=== PATIENT | male | born 1950 | race Caucasian/White ===

== ENCOUNTER 2025-05-16 09:40 | Outpatient (AMB) | payer MEDICARE, SELFPAY ==
--- OUTSIDE RECORDS SUMMARY | 2024-02-09 06:00 | XMS_ITS ---
Author Organization [facility], [place] Address [address] [facility] 1 [place] [address] Care Team Providers Care Postal Delivery Officer Name Role Phone Migration, Provider Unavailable Unavailable REASON FOR VISIT CPX Encounters Encounter Location Date Provider Diagnosis [facility], [address] [address] 02/09/2024 Provider Migration Plan Of Treatment No Information Progress Notes * KAYLEN ARRIAGADOB: (74 yo M)Acc No.[id number]:02/09/2024 Progress Notes Patient: KAYLEN BRICE Provider: Bryce Red :1950 A ge:73 Y S ex:Male Date:02/09/2024 Address:[address] [place], [place] [phone] Subjective: * Chief Complaints: * C PX * Ocular Surgical History: Objective: Vision Examination: * Electronic signature of Prov ider Migration on 05/16/2025 at 11:25 AM EDT Sign off status: Pending * Provider: Bryce doss Migration Date: 02/09/2024 Generated for Babita francis/Ethan/eTransmitting on: 05/16/2025 11:25 AM EDT
--- OUTSIDE RECORDS SUMMARY | 2024-04-05 05:30 | XMS_ITS ---
Author Organization [facility], [place] Address [address] [facility] 1 [place] [address] Care Team Providers Care R&D Engineer Name Role Phone Migration, Provider Unavailable Unavailable REASON FOR VISIT Follow-up Appt Encounters Encounter Location Date Provider Diagnosis [facility], [address] [address] 04/05/2024 Provider Migration Plan Of Treatment No Information Progress Notes * KAYLEN ARRIAGADOB: (74 yo M)Acc No.[id number]:04/05/2024 Progress Notes Patient: KAYLEN BRICE Provider: Bryce Red :1950 A ge:73 Y S ex:Male Date:04/05/2024 Address:[address] [place], [place] [phone] Subjective: * Chief Complaints: * F ollow-up Appt * Ocular Surgical History: Objective: Vision Examination: * Electronic signature of Prov ider Migration on 05/16/2025 at 11:24 AM EDT Sign off status: Pending * Provider: Bryce Red Date: 04/05/2024 Generated for Babita francis/Ethan/eTransmitting on: 0 05/16/2025 11:24 AM EDT
--- OUTSIDE RECORDS SUMMARY | 2024-04-25 06:30 | XMS_ITS ---
Author Organization [facility], [place] Address [address] [facility] 1 [place] [address] Care Team Providers Care Audio Visual Aids Director Name Role Phone Migration, Provider Unavailable Unavailable REASON FOR VISIT Follow-up Appt Encounters Encounter Location Date Provider Diagnosis [facility], [address] [address] 04/25/2024 Provider Migration Plan Of Treatment No Information Progress Notes * KAYLEN ARRIAGADOB: (74 yo M)Acc No.[id number]:04/25/2024 Progress Notes Patient: KAYLEN BRICE Provider: Bryce Red :1950 A ge:73 Y S ex:Male Date:04/25/2024 Address:[address] [place], [place] [phone] Subjective: * Chief Complaints: * F ollow-up Appt * Ocular Surgical History: Objective: Vision Examination: * Electronic signature of Prov ider Migration on 05/16/2025 at 11:25 AM EDT Sign off status: Pending * Provider: Bryce Red Date: 04/25/2024 Generated for Babita francis/Ethan/eTransmitting on: 05/16/2025 11:25 AM EDT
--- OUTSIDE RECORDS SUMMARY | 2024-09-10 07:30 | XMS_ITS ---
Author Organization [facility], [place] Address [address] [facility] 1 [place] [address] Care Team Providers Care Organ Assembler Name Role Phone Migration, Provider Unavailable Unavailable REASON FOR VISIT Follow-up Appt Encounters Encounter Location Date Provider Diagnosis [facility], [address] [address] 09/10/2024 Provider Migration Plan Of Treatment No Information Progress Notes * KAYLEN ARRIAGADOB: (74 yo M)Acc No.[id number]:09/10/2024 Progress Notes Patient: KAYLEN BRICE Provider: Bryce Red :1950 A ge:74 Y S ex:Male Date:09/10/2024 Address:[address] [place], [place] [phone] Subjective: * Chief Complaints: * F ollow-up Appt * Ocular Surgical History: Objective: Vision Examination: * Electronic signature of Prov ider Migration on 05/16/2025 at 11:25 AM EDT Sign off status: Pending * Provider: Bryce Red Date: 09/10/2024 Generated for Babita francis/Ethan/eTransmitting on: 0 05/16/2025 11:25 AM EDT
--- OUTSIDE RECORDS SUMMARY | 2024-09-10 07:30 | XMS_ITS ---
Author Organization [facility], [place] Address [address] [facility] [address] [place] [address] Care Team Providers Care Rubber Press Operator Name Role Phone Saturnino Howell Unavailable [phone] REASON FOR VISIT Follow-up Appt Encounters Encounter Location Date Provider Diagnosis [address] [address] 09/10/2024 Saturnino Howell Plan Of Treatment No Information Progress Notes * KAYLEN ARRIAGADOB: (74 yo M)Acc No.[id number]:09/10/2024 Progress Notes Patient: KAYLEN BRICE Provider: López SHAH :1950 A ge:74 Y S ex:Male Date:09/10/2024 Address:[address] [place], [place] [phone] Subjective: * Chief Complaints: * F ollow-up Appt * Ocular Surgical History: Objective: Vision Examination: * Electronic signature of Jordan Howell PA-C on 05/16/2025 at 11:25 AM EDT Sign off status: Pending * Provider: López SHAH Date: 0 09/10/2024 Generated for Kelleni ng/Facoretta/eTransmitting on: 0 05/16/2025 11:25 AM EDT
--- NOTE | 2025-05-16 09:41 | MHC.PC.OV ---
Vital Signs 05/16/25 09:44 05/16/25 10:19 Height 5 ft 7.99 in Weight 159 lb 8 oz BMI 24.3 BP 141/73 H 112/62 Blood Pressure Location Lt brachial Lt brachial Position Sitting Sitting Respiration 20 Pulse 67 Pulse Source Pulse Oximeter Temp 97.2 F Temp Source Temporal Artery Scan Pulse Oximetry (%) 97 Oxygen Delivery Method Room Air Intake Visit Reasons: Establish care; transfer of care from Dr. Wong Marketing Services Specialist Required: No Allergies liptor Allergy (Uncoded 05/16/25 10:19) sore muscles Medication List - Last Reconciled 05/16/25 by Hermelinda Celis PA-C lisinopril 20 mg PO DAILY metformin 1,000 mg (2 x 500 mg) PO BID 90 days simvastatin 40 mg PO DAILY Tobacco use date assessed: 05/16/25 Fall risk assessment: No Falls in past year Last assessed Fall Risk: 05/16/25 Dental Screening Dental Screen Date: 05/16/25 Did you have a dental visit in the last 12 months?: Yes Was dental information given to patient?: Patient has dentist HPI Establish care; transfer of care from Dr. Wong HPI Details The patient is a 74-year-old male presenting for a new patient appointment and management of chronic conditions. The patient has a history of hypertension, which was noted to be typically high, although he does not check it frequently at home. During the visit, his blood pressure was measured at 112/62 mmHg, which is within the normal range. He is diagnosed with Type 2 Diabetes Mellitus and is currently on metformin 1000 mg twice a day. His recent A1c was 6.6, indicating good control of his diabetes. The patient also has hyperlipidemia and is on simvastatin 40 mg for cholesterol management. He recently had blood work done, but the results are not available at the current facility. He reports a history of vitamin B12 deficiency and is taking a supplement for it. There is uncertainty about whether recent blood work included a B12 level check. The patient has a history of benign colon polyps, with the last colonoscopy performed possibly 10 years ago patient unsure where. He is considering a referral for another colonoscopy, depending on insurance information. Social History - Housing: Lives with a lady, not alone - Functional Status: Able to drive, no recent falls [facility] Medical History (Updated 05/16/25 @ 10:27 by Hermelinda Celis PA-C) Preventative health care Vitamin B12 deficiency Hyperlipidemia Type 2 diabetes mellitus with hemoglobin A1c goal of less than 7.0% Hypertension Family History Mother No problems noted. Father No problems noted. Social History Housing: House Alcohol intake: current Patient Tobacco Use Status: Current someday Tobacco user Tobacco use type: Cigar service: No Current occupational status: retired Cognitive needs: No Hearing needs: No Vision needs: Yes (rx glasses) Questionnaire PHQ-9 Over the last 2 weeks, how often have you been bothered by any of the following problems? 1. Little interest or pleasure in doing things: not at all 2. Feeling down, depressed, or hopeless: not at all 3. Trouble falling or staying asleep, or sleeping too much: not at all 4. Feeling tired or having little energy: not at all 5. Poor appetite or overeating: not at all 6. Feeling bad about yourself - or that you are a failure or have let yourself or your family down: not at all 7. Trouble concentrating on things, such as reading the newspaper or watching television: not at all 8. Moving or speaking so slowly that other people could have noticed. Or the opposite - being so fidgety or restless that you have been moving around a lot more than usual: not at all 9. Thoughts that you would be better off or of hurting yourself in some way: not at all Total score: 0 Depression Screening Interpretation: Negative Depression Screening Done: Yes 33945 - PHQ-9 Billing: Yes Source: Developed by Drs. Collin Eng, Vida Bear, Addison Wilkinson and colleagues, with an educational keith from [employer]. Thrive Questionnaire Date Thrive assessed: 05/16/25 I am a: Patient What is your living situation today?: I have a steady place to live Within the past 12 months, did the food you bought not last and you didn't have the money to get more?: Never true Within the past 12 months, did you worry whether your food would run out before you got money to buy more?: Never true Do you have trouble paying for medicines?: No Do you have trouble getting transportation to medical appointments?: No Do you have trouble paying your heating and electricity bill?: No Do you have trouble taking care of your child, family member or friend?: No Do you have trouble with day-to-day activities such as bathing, preparing meals, shopping, managing finances, etc.?: No Are you currently unemployed and looking for a job?: No Are you interested in more education?: No Please select the resources that you would like help with: None THRIVE Score: 0 AUDIT C Alcohol Use Questionnaire (AUDIT-C) 1. How often do you have a drink containing alcohol?: 2-3 times a week 2. How many drinks containing alcohol do you have on a typical day when you are drinking?: 1 or 2 3. How often do you have six or more drinks on one occasion?: Never Total Score: 3 Score Reviewed/Action Taken: No CARLOTA-7 AMB Questionnaire CARLOTA-7 Date CARLOTA - 7 assessed: 05/16/25 Feeling nervous, anxious, or on edge: 0 = Not at all Not being able to stop or control worryin = Not at all Worrying too much about different things: 0 = Not at all Trouble relaxin = Not at all Being so restless that it is hard to sit still: 0 = Not at all Becoming easily annoyed or irritable: 0 = Not at all Feeling afraid as if something awful might happen: 0 = Not at all Total CARLOTA-7 score (0-4 normal; 5-9 mild; 10-14 moderate; 15-21 severe): 0 Source: Developed by Drs. Collin Eng, Vida Bear, Addison Wilkinson and colleagues, with an educational keith from [employer]. CARLOTA-7 Assessment Billing CARLOTA-7 Assessment Tool: CARLOTA-7 Assessment 86675 Review of Systems Const Details: - Cardiovascular: Denies chest pain, denies dizziness - Respiratory: Denies shortness of breath - Musculoskeletal: Denies leg swelling, denies recent falls - ENT: Denies hearing trouble All systems reviewed & are unremarkable except as noted in HPI and below Physical exam (Primary Care) Vital Signs: Last Vital Signs Temp 97.2 F 05/16/25 09:44 Pulse 67 05/16/25 09:44 Resp 20 05/16/25 09:44 BP 141/73 H 05/16/25 09:44 Pulse Ox 97 05/16/25 09:44 Oxygen Delivery Method Room Air 05/16/25 09:44 Care Plan Goal for BP management: <140/90 at Goal BMI result Body Mass Index 24.3 Normal BMI Tobacco/Smoking Status: Tobacco use Status Tobacco use date assessed 05/16/25 05/16/25 09:52 Patient Tobacco Use Status Current someday Tobacco 05/16/25 09:52 Tobacco use type Cigar 05/16/25 09:52 PHQ-9: PHQ-9 Score PHQ-9: Total score 0 05/16/25 10:16 Depression Screening Interpretation: Negative Thrive Assessment: Date of Thrive Assessment Date Thrive assessed 05/16/25 05/16/25 09:52 Const Other: Appearance: Alert. Oriented X3. No acute distress. Head: Normal external exam. Normocephalic. Atraumatic. Eyes: Pupils are equal, round, and reactive to light. Extraocular movements intact. Conjunctiva and sclera normal. Eyelids normal. Ears: External auditory canal normal. Tympanic membranes normal. Throat: Pharynx normal. Uvula midline. Moist mucous membranes. Neck: Normal inspection. Neck supple. Full range of motion. Cardiovascular: Normal heart rate and rhythm. Heart sound normal. No murmurs noted. Pulses normal throughout. Respiratory: No respiratory distress. Painless inspiration. Breath sounds normal. No wheezes/rales/rhonchi noted. Chest nontender. No accessory muscle usage noted or decreased air movement noted. Abdomen: Bowel sounds normal in all 4 quadrants. No distention noted. Back: Full range of motion noted. Skin: Skin warm and dry. Normal skin color. Normal skin turgor. No rashes/lesions/lacerations noted. Extremities: No lower extremity edema. Extremities exhibit normal range of motion. Neuro: Oriented X 3. No motor deficit. No sensory deficit. Reflexes normal. Office Procedures Flu Questionnaire Does the patient have a severe egg allergy?: No Does the patient have severe life threatening allergies?: No Does the patient have a fever or illness today?: No Has the patient ever had Guillain-[place] Syndrome?: No Has the patient ever had any past reaction to a flu shot?: No Results AMB Hemoglobin A1c AMB Hemoglobin A1c 6.6 % Last Edit by ZEESHAN Landry on 05/16/25 10:16 Immunizations Fluarix [id number] (PF) 45 mcg (15 mcg x 3)/0.5 mL IM syringe Performing Provider: Hermelinda Celis PA-C Performing Location: [facility] [place] [facility] Documented (not given) by: Danica Da Silva CMA on 05/16/25 10:01 Reason Not Given: Patient Refused Results Reviewed Results Reviewed: Laboratory Last Values Hgb A1c (Clinic) 6.6 % (4.0-6.0) H 05/16/25 10:00 - Labs: A1c 6.6, indicating good diabetes control Coding Level of Care Code New Pt Level 4 (16374) Complex EM visit Add On G2211 Diagnoses Hypertension I10 Type 2 diabetes mellitus with hemoglobin A1c goal of less than 7.0% E11.9 Hyperlipidemia E78.5 Vitamin B12 deficiency E53.8 [facility] health care Z00.00 Additional Codes PHQ-9 - 34948 - PHQ-9 Billing: Yes ([id number]) CARLOTA-7 Assessment Billing - CARLOTA-7 Assessment Tool: CARLOTA-7 Assessment [id number] ([id number]) Assessment & Plan Assessment & Plan (1) Hypertension: Code(s): I10 - Essential (primary) hypertension Category: Medical Plan: The patient's blood pressure was rechecked during the visit and found to be 112/62 mmHg, which is within the normal range. He is advised to continue monitoring his blood pressure at home and report any significant changes. (2) Type 2 diabetes mellitus with hemoglobin A1c goal of less than 7.0%: Code(s): E11.9 - Type 2 diabetes mellitus without complications Category: Medical Plan: The patient is currently on metformin 1000 mg twice a day, with an A1c of 6.6 indicating good control. He is advised to continue his current medication regimen and follow up every three to four months for diabetes management. (3) Hyperlipidemia: Code(s): E78.5 - Hyperlipidemia, unspecified Category: Medical Plan: The patient is on simvastatin 40 mg for cholesterol management. He is advised to continue his current medication and follow up with routine blood work to monitor lipid levels. (4) Vitamin B12 deficiency: Code(s): E53.8 - Deficiency of other specified B group vitamins Category: Medical Plan: The patient is taking a vitamin B12 supplement for his deficiency. He is advised to ensure that his B12 levels are checked in future blood work, if not already done. (5) Preventative health care: Code(s): Z00.00 - Encounter for general adult medical examination without abnormal findings Category: Medical Plan: The patient has a history of benign colon polyps and is considering a referral for a colonoscopy, depending on insurance information. He is advised to verify the date of his last colonoscopy and consider scheduling a new one if it has been over 10 years. Plan Plan Patient was informed and verbally consented to the use of an ambient scribe for clinic note documentation during this visit. 1. Hypertension The patient's blood pressure was rechecked during the visit and found to be 112/62 mmHg, which is within the normal range. He is advised to continue monitoring his blood pressure at home and report any significant changes. 2. Type 2 Diabetes Mellitus The patient is currently on metformin 1000 mg twice a day, with an A1c of 6.6 indicating good control. He is advised to continue his current medication regimen and follow up every three to four months for diabetes management. 3. Hyperlipidemia The patient is on simvastatin 40 mg for cholesterol management. He is advised to continue his current medication and follow up with routine blood work to monitor lipid levels. 4. Vitamin B12 Deficiency The patient is taking a vitamin B12 supplement for his deficiency. He is advised to ensure that his B12 levels are checked in future blood work, if not already done. 5. Preventative Care: Colon Cancer Screening With Colonoscopy The patient has a history of benign colon polyps and is considering a referral for a colonoscopy, depending on insurance information. He is advised to verify the date of his last colonoscopy and consider scheduling a new one if it has been over 10 years. During the visit, we discussed the patient's current medication regimen for hypertension, diabetes, and hyperlipidemia. I advised him to continue his current medications and to follow up regularly for diabetes management every three to four months. We also discussed the importance of monitoring his blood pressure at home and ensuring his vitamin B12 levels are checked in future blood work. Regarding preventative care, we talked about the need for a colonoscopy, given his history of benign polyps, and the patient is considering a referral based on insurance information. Orders: Orders Influenza [id number] Immunization Today Z23 - Encounter for immunization AMB Hemoglobin A1c Today Z13.9 - Encounter for screening, unspecified Medications: New metformin 1,000 mg (2 x 500 mg) PO BID 360 tabs 3RF 90 days lisinopril 20 mg PO DAILY 90 tabs 3RF simvastatin 40 mg PO DAILY 90 tabs 3RF Patient Instructions: - Continue taking prescribed medications for hypertension, diabetes, and hyperlipidemia. - Monitor blood pressure at home and report any significant changes. - Follow up every three to four months for diabetes management. - Ensure vitamin B12 levels are checked in future blood work. - Verify the date of the last colonoscopy and consider scheduling a new one if it has been over 10 years.
[2025-05-16 09:44] VITALS: BP 141/73; PULSE 67; RESP 20; TEMP 36.2; O2SAT 97; BMI 24.3
[2025-05-16 10:19] VITALS: BP 112/62
--- OUTSIDE RECORDS SUMMARY | 2025-05-16 11:25 | XMS_ITS | Clinical Summary ---
Author Organization [facility] Address [address] [place] [address] Care Team Providers Care Oven Builder Name Role Phone Tray Hickman MD Primary Care Provider [phone] Allergies Active Allergy Reactions Criticality Noted Date Comments Atorvastatin Other (See Comments) 04/26/2024 Muscle cramping Medications Medication Sig Dispensed Refills Start Date End Date Status metFORMIN (GLUCOPHAGE) tablet 500 mg Take 1 tablet (500 mg total) by mouth 2 (two) times a day with meals. 0 Active lisinopril (PRINIVIL,ZESTRIL) tablet 20 mg Take 1 tablet (20 mg total) by mouth daily. 0 08/24/2023 Active simvastatin (ZOCOR) tablet 40 mg Take 1 tablet (40 mg total) by mouth daily. 0 08/24/2023 Active aspirin 81 MG chewable tablet Chew 1 tablet (81 mg total) by mouth daily. 0 Active Multiple Vitamins-Minerals (MULTI COMPLETE PO) Take by mouth. 0 A ctive vitamin B-12 (CYANOCOBALAMIN) 100 MCG tablet Take 0.5 tablets (50 mcg total) by mouth daily. 0 Active Active Problems Problem Noted Date Diagnosed Date Type 2 diabetes mellitus wit hout complication, without long-term current use of insulin 11/24/2023 History of hyperlipidemia 11/24/2023 History of hypertension 11/24/2023 Osteoarthritis of left knee 11/24/2023 Alcohol abuse Overview: 04/26/2024 Sober 30 days Family History Medical History Relation Name Comments Diabetes Father Parkinsonism Father Uterine cancer Mother Clotting disorder Neg Hx Relation Name Status Comments Father Mother Social History Tobacco Use Types Packs/Day Years Used Date Smoking Tobacco: Light Smoker Cigars Tobacco Cessation:Ready to Q uit: Not Asked; Counseling Given: Not Answered Alcohol Use Standard Drinks/Week Comments Not Currently 0 (1 standard drink = 0.6 oz pure alcohol) daily, but reports 30 days SOBER Sex and Gender Information Value Date Recorded Sex Assigned at Not on file Gender Identity Not on file Sexual Orientation Not on file Job Start Date Occupation Industry Not on file Not on file Not on file Last Filed Vital Signs Vital Sign Reading Time Taken Comments Blood Pressure 114/72 04/26/2024 6:58 AM EDT Pulse 77 04/26/2024 6:58 AM EDT Temperature 36.2 C (97.2 F) 04/26/2024 6:58 AM EDT Respiratory Rate 18 04/26/2024 6:58 AM EDT Oxygen Saturation 100% 04/26/2024 6:58 AM EDT Inhaled Oxygen Concentration - - Weight 72.1 kg (159 lb) 04/26/2024 6:58 AM EDT Height 171 cm (5' 7.32 ) 04/26/2024 6:58 AM EDT Body Mass Index 24.66 04/26/2024 6:58 AM EDT Plan of Treatment Health Maintenance Due Date Last Done Comments Hepatitis C Screening 1950 COVID-19 Vaccine (#1) 1950 Pneumococcal Vaccine (1 of 2 - PCV) 1957 Depression Screening 1963 Preventative Health Evaluation 1969 Tobacco Cessation Counseling 1969 DTap / Tdap / Td (1 - Tdap) 1970 Colon Cancer Screening (Colonoscopy) 1996 Shingrix-Zoster Vaccine (1 of 2) 2001 Abdominal Aortic Aneurysm (A AA) Screening 2016 Fall Risk Assessment 2016 Influenza Vaccine (#1) 2025 RSV Adult > 60+ Yrs or Pregn ant (1 - 1-dose 75+ series) 2026 Hepatitis B Vaccines Aged Out No long er eligible based on patient's age to complete this topic RSV Ped < 20 months Aged Out No longe r eligible based on patient's age to complete this topic Care Teams Oven Builder Relationship Specialty Start Date End Date Tray Hickman MD [address] [place] [id number] PCP - General Internal Medicine 07/14/16
--- OUTSIDE RECORDS SUMMARY | 2025-05-16 11:25 | XMS_ITS | Encounter Summary ---
Author Organization [facility] Address [address] [place] [address] Care Team Providers Care V Belt Builder Name Role Phone Tray Hickman MD Primary Care Provider [phone] Encounter Details Date Type Department Care Team (Latest Contact Info) Description 09/10/2024 Lab Requisition [facility] - Main Lab [address] [facility] [place] [address] Saturnino Howell PA [address] [facility] [address] [place] [address] Hyperlipidemia, unspecified; Type 2 diabetes mellitus without complications (CMS/HCC V24, CMS/HCC V28); Essential (primary) hypertension Social History Tobacco Use Types Packs/Day Years Used Date Smoking Tobacco: Light Smoker Alcohol Use Standard Drinks/Week Comments Not Currently 0 (1 standard drink = 0.6 oz pur e alcohol) Sex and Gender Information Value Date Recorded Sex Assigned at Not on file Legal Sex Male 5:01 PM EST Gender Identity Not on file Sexual Orientation Not on file documented as of this encounter Plan of Treatment Not on file documented as of this encounter Procedures Procedure Name Priority Date/Time Associated Diagnosis Comments SST - GOLD Routine 09/10/2024 12:00 AM EST Hyperlipidemia, unspecified Type 2 diabetes mellitus without complications (CMS/HCC) Essential (primary) hypertension LIPID PANEL WITH REFLEX TO DIRECT LDL Routine 09/10/2024 12:00 AM EST Hyperlipidemia, unspecified Type 2 diabetes mellitus without complications (CMS/HCC) Essential (primary) hypertension CREATININE, SERUM Routine 09/10/2024 12: 00 AM EST Hyperlipidemia, unspecified Type 2 diabetes mellitus without complications (CMS/HCC) Essential (primary) hypertension BUN Routine 09/10/2024 12:00 AM EST Hyperlipidemia, unspecified Type 2 diabetes mellitus without complications (CMS/HCC) Essential (primary) hypertension LDL CHOLESTEROL, DIRECT Routine 09/10/2024 12:00 AM EST Hyperlipidemia, unspecified Type 2 diabetes mellitus without complications (CMS/HCC) Essential (primary) hypertension HEMOGLOBIN A1C Routine 09/10/2024 12:00 AM EST Hyperlipidemia, unspecified Type 2 diabetes mellitus without complications (CMS/HCC) Essential (primary) hypertension HEPATIC FUNCTION PANEL Routine 09/10/2024 12:00 AM EST Hyperlipidemia, unspecified Type 2 diabetes mellitus without complications (CMS/HCC) Essential (primary) hypertension ELECTROLYTE PANEL Routine 09/10/2024 12: 00 AM EST Hyperlipidemia, unspecified Type 2 diabetes mellitus without complications (CMS/HCC) Essential (primary) hypertension documented in this encounter Results * SST tube (09/10/2024 12:00 AM EST) Extra Tube Hold for add-ons. 09/10/2024 8:01 PM EST [facility] Comment:Auto resulted. Blood Venous blood specimen / Unknown 09/10/2024 09/10/2024 6:36 PM EST us Saturnino SHAH LAB BLOOD ORDERABLES Final Res ult [facility] [address] [place] [address], [place] [phone] * (ABNORMAL) Hemoglobin A1c (09/10/2024 12:00 AM EST) Hemoglobin A1C 6.5(H) <6.5 % LAB CHEMISTRY METHOD 09/10/2024 9:47 PM EST [facility] Mean Bld Glu Estim. 140 mg/dL LAB CHEMISTRY METHOD 09/10/2024 9:47 PM EST [facility] Blood Venous blood specimen / Unknown 09/10/2024 09/10/2024 6:15 PM EST us Saturnino SHAH LAB BLOOD ORDERABLES Final Res ult Performing Organization Address [facility]/ZIP Co de Phone Number [facility] [address] [place] [address], * Creatinine (09/10/2024 12:00 AM EST) Creatinine 0.82 0.70 - 1.30 mg/dL LAB CHEMISTRY METHOD 09/10/2024 7:05 PM [facility] eGFR 93 >=60 mL/min/1. 73m2 LAB CHEMISTRY METHOD 09/10/2024 7:05 PM EST [facility] Comment:Calculation based on the Chronic Kidney Disease Epidemiology Collaboration (CKD-EPI) equation refit without adjustment for race. Blood Venous blood specimen / Unknown 09/10/2024 09/10/2024 6:15 PM EST us Saturnino SHAH LAB BLOOD ORDERABLES Final Res ult Performing Organization Address [facility] de Phone Number [facility] [address] [place] [address], * BUN (09/10/2024 12:00 AM EST) BUN 10 5 - 25 mg/dL LAB CHEMISTRY METHOD 09/10/2024 7:05 PM EST [facility] Blood Venous blood specimen / Unknown 09/10/2024 09/10/2024 6:15 PM EST us Saturnino SHAH LAB BLOOD ORDERABLES Final Res ult [facility] [address] [place] [address], [place] [phone] * LDL cholesterol, direct (09/10/2024 12:00 AM EST) Pathologist [facility] LDL Direct 84 <=100 mg/dL LAB CHEMISTRY METHOD 09/10/2024 7:05 PM [facility] Blood Venous blood specimen / Unknown 09/10/2024 09/10/2024 6:15 PM EST Saturnino SHAH LAB BLOOD ORDERABLES Final Res ult [facility] [address] [place] [address], [place] [phone] * Hepatic function panel (09/10/2024 12:00 AM EST) Pathologist [facility] Total Protein 6.5 6.0 - 8.0 g/dL LAB CHEMISTRY METHOD 09/10/2024 7:05 PM [facility] Albumin 4.1 3.2 - 5.0 g/dL LAB CHEMISTRY METHOD 09/10/2024 7:05 PM [facility] Total Bilirubin 1.0 0.0 - 1.4 mg/dL LAB CHEMISTRY METHOD 09/10/2024 7:05 PM [facility] Bilirubin, Direct 0.2 0.0 - 0.3 mg/dL LAB CHEMISTRY METHOD 09/10/2024 7:05 PM [facility] Bilirubin, Indirect 0.8 0.0 - 1.1 mg/dL LAB CHEMISTRY METHOD 09/10/2024 7:05 PM [facility] ALT (SGPT) 20 10 - 60 unit/L LAB CHEMISTRY METHOD 09/10/2024 7:05 PM [facility] AST (SGOT) 12 10 - 42 unit/L LAB CHEMISTRY METHOD 09/10/2024 7:05 PM [facility] Alkaline Phosphatase 72 42 - 121 unit/L LAB CHEMISTRY METHOD 09/10/2024 7:05 PM EST [facility] Blood Venous blood specimen / Unknown 09/10/2024 09/10/2024 6:15 PM EST us Saturnino SHAH LAB BLOOD ORDERABLES Final Res ult [facility] [address] [place] [address], [place] [phone] * Lipid panel with reflex to direct LDL (09/10/2024 12:00 AM EST) Cholesterol 166 0 - 200 mg/dL LAB CHEMISTRY METHOD 09/10/2024 7:05 PM [facility] Triglycerides 129 0 - 150 mg/dL LAB CHEMISTRY METHOD 09/10/2024 7:05 PM [facility] HDL 59 >=40 mg/dL LAB CHEMISTRY METHOD 09/10/2024 7:05 PM [facility] LDL Calculated 81 0 - 100 mg/dL LAB CHEMISTRY METHOD 09/10/2024 7:05 PM [facility] VLDL Cholesterol Eleazar 25.8 mg/dL LAB CHEMISTRY METHOD 09/10/2024 7:05 PM [facility] Non HDL Chol. (LDL+VLDL) 107 <145 mg/dL LAB CHEMISTRY METHOD 09/10/2024 7:05 PM [facility] Chol/HDL Ratio 2.8 0.0 - 4.4 LAB CHEMISTRY METHOD 09/10/2024 7:05 PM [facility] Blood Venous blood specimen / Unknown 09/10/2024 09/10/2024 6:15 PM EST us Saturnino SHAH LAB BLOOD ORDERABLES Final Res ult [facility] [address] [place] [address], [place] [phone] * (ABNORMAL) Electrolyte panel (09/10/2024 12:00 AM EST) Sodium 132(L) 133 - 145 mmol/L LAB CHEMISTRY METHOD 09/10/2024 7:05 PM EST [facility] Potassium 3.9 3.5 - 5.5 mmol/L LAB CHEMISTRY METHOD 09/10/2024 7:05 PM EST [facility] Chloride 100 96 - 110 mmol/L LAB CHEMISTRY METHOD 09/10/2024 7:05 PM [facility] CO2 27 21 - 32 mmol/L LAB CHEMISTRY METHOD 09/10/2024 7:05 PM [facility] Anion Gap 5 3 - 11 LAB CHEMISTRY METHOD 09/10/2024 7:05 PM [facility] Blood Venous blood specimen / Unknown 09/10/2024 09/10/2024 6:15 PM EST Saturnino SHAH LAB BLOOD ORDERABLES Final Res ult [facility] [address] [place] [address], [place] [phone] documented in this encounter Visit Diagnoses Diagnosis Hyperlipidemia, unspecified Type 2 diabetes mellitus without complications (CMS/HCC V24, CMS/HCC V28) Essential (primary) hypertension Unspecified essential hypertension documented in this encounter Care Teams V Belt Builder Relationship Specialty Start Date End Date Tray Hickman MD [address] [address] PCP - General 07/14/16 documented as of this encounter
--- OUTSIDE RECORDS SUMMARY | 2025-05-16 11:25 | XMS_ITS | Patient Health Record ---
Author Organization [facility] [place] Address [address] [facility] [address] [place] [address] Care Team Providers Care Family Dentist Name Role Phone Saturnino Howell Unavailable [phone] Migration, Provider Unavailable Unavailable Reason For Referral No Information Encounters Encounter Location Date Provider Diagnosis [facility] [address] [address] 09/10/2024 Provider Migration [address] [address] 09/10/2024 Saturnino Howell Plan Of Treatment No Information Insurance Providers Payer Name Payer Address Payer Phone Subscriber Number Group Number Insured Name Patient Relationship to Insured Coverage Start Date Coverage End Date [employer] [place] -[employer] Ad[place]age Pf [address] [place] [address] [phone] [id number] KAYLEN ARRIAGA Self - patient is the insured
--- OUTSIDE RECORDS SUMMARY | 2025-05-16 11:25 | XMS_ITS | Clinical Summary ---
Author Organization [address] Address [address] [place] [address] Phone Care Team Providers Care Web Page Developer Name Role Phone Tray Hickman MD Primary Care Provider [phone] Surgical History Surgery Date Site/Laterality Comments KNEE ARTHROSCOPY W/ MENISCECTOMY Bilateral PROCEDURE:KNEE ARTHROSCOPY W/ MENISCECTOMY;COMMENT:several years ago COLONOSCOPY PROCEDURE:COLONOSCOPY PARTIAL KNEE ARTHROPLASTY 11/2023 Left Medial PROCEDURE:PARTIAL KNEE ARTHROPLASTY Medical History Medical History Date Comments Hypertension DX:Hypertension Diabetes mellitus (CMS/HCC V 24, CMS/HCC V28) DX:Diabetes mellitus ([facility]) High cholesterol DX:High cholest caro Alcohol abuse DX:Alcohol abuse ;COMMENT:04/26/2024 Sober 30 days Osteoarthritis DX:Osteoarthriti s;COMMENT:Bilateral knees Family History Medical History Relation Name Comments [...] on file Sexual Orientation Not on file Obstetrics History Last Filed Vital Signs Vital Sign Reading Time Taken Comments Blood Pressure 114/72 04/26/2024 6:58 AM EDT Sitting Right arm Pulse 77 04/26/2024 6:58 AM EDT Temperature - - Respiratory Rate - - Oxygen Saturation - - Inhaled Oxygen Concentration - - Weight 72.1 kg (159 lb) 04/26/2024 6:58 AM EDT Height 171 cm (5' 7.32 ) 04/26/2024 6:5 8 AM EDT Body Mass Index 24.66 04/26/2024 6:58 AM EDT Plan of Treatment Health Maintenance Due Date Last Done Comments Diabetes: Annual Foot Exam 1961 Diabetes: Annual Retina Eye Exam 1961 DTaP,Tdap,and Td Vaccines (1 - Tdap) 1970 Hepatitis A Vaccines (1 of 2 - Risk 2-dose series) 1970 Pneumococcal Vaccine: 50+ Years (1 of 2 - PCV) 1970 Zoster Vaccines (1 of 2) 2001 Abdominal Aortic Aneurysm (AAA) Screen 07/21/2022 Colorectal Cancer Screening: Colonoscopy 07/21/2022 Falls Risk Assessment 07/21/2022 Hepatitis C Screening 07/21/2022 Medicare Annual Wellness Visit 07/21/2022 Social Influencers of Health Screening 07/21/2022 Diabetes: Annual Urine Albumin-Creatinine Ratio (uACR) 03/17/2024 Depression Screening 08/22/2024 Diabetes: Blood Sugar Control Test (HGBA1C) 03/10/2025 09/10/2024, 04/25/2024, 11/28/2023, Additional history exists COVID-19 Vaccine ( season) 2025 Influenza Vaccine (#1) 2025 Diabetes: Annual GFR (Glomerular Filtration Rate) 09/10/2025 09/10/2024, 11/28/2023, 11/28/2023 Hypertension/CHF/CAD Annual BMP Blood Test 09/10/2025 09/10/2024, 11/28/2023, 11/28/2023 RSV Immunization Adult Patients (1 - 1-dose 75+ series) 2026 Cholesterol Screening (Lipid Panel) 09/10/2029 09/10/2024, 09/10/2024 HIB Vaccines Aged Out No longer eligi ble based on patient's age to complete this topic HPV Vaccines Aged Out No longer eligi ble based on patient's age to complete this topic Hepatitis B Vaccines Aged Out No long er eligible based on patient's age to complete this topic IPV Vaccines Aged Out No longer eligi ble based on patient's age to complete this topic MMR Vaccines Aged Out No longer eligi ble based on patient's age to complete this topic Meningococcal ACWY Vaccine Aged Out N o longer eligible based on patient's age to complete this topic Meningococcal B Vaccine Aged Out No l onger eligible based on patient's age to complete this topic RSV Immunization Patients Under 20 months Aged Out No longer eligible based on patient's age to complete this topic Varicella Vaccines Aged Out No longer eligible based on patient's age to complete this topic Procedures Procedure Name Priority Date/Time Associated Diagnosis Comments CREATININE, SERUM Routine 09/10/2024 12: 00 AM EST Hyperlipidemia, unspecified Type 2 diabetes mellitus without complications (CMS/HCC) Essential (primary) hypertension HEMOGLOBIN A1C Routine 09/10/2024 12:00 AM EST Hyperlipidemia, unspecified Type 2 diabetes mellitus without complications (CMS/HCC) Essential (primary) hypertension LDL CHOLESTEROL, DIRECT Routine 09/10/2024 12:00 AM EST Hyperlipidemia, unspecified Type 2 diabetes mellitus without complications (CMS/HCC) Essential (primary) hypertension from Last 3 Months or Most Recently Relevant to Health Maintenance Results * Creatinine (09/10/2024 12:00 AM EST) Creatinine 0.82 0.70 - 1.30 mg/dL LAB CHEMISTRY METHOD 09/10/2024 7:05 PM EST [facility] eGFR 93 >=60 mL/min/1. 73m2 LAB CHEMISTRY METHOD 09/10/2024 7:05 PM EST [facility] Comment:Calculation based on the Chronic Kidney Disease Epidemiology Collaboration (CKD-EPI) equation refit without adjustment for race. Blood Venous blood specimen / Unknown 09/10/2024 09/10/2024 6:15 PM EST us Saturnino SHAH LAB BLOOD ORDERABLES Final Res ult [facility] [address] [place] [address], [place] [phone] * LDL cholesterol, direct (09/10/2024 12:00 AM EST) LDL Direct 84 <=100 mg/dL LAB CHEMISTRY METHOD 09/10/2024 7:05 PM EST [facility] Blood Venous blood specimen / Unknown 09/10/2024 09/10/2024 6:15 PM EST Saturnino SHAH LAB BLOOD ORDERABLES Final Res ult [facility] [address] [place] [address], [place] [phone] * (ABNORMAL) Hemoglobin A1c (09/10/2024 12:00 AM EST) Hemoglobin A1C 6.5(H) <6.5 % LAB CHEMISTRY METHOD 09/10/2024 9:47 PM EST [facility] Mean Bld Glu Estim. 140 mg/dL LAB CHEMISTRY METHOD 09/10/2024 9:47 PM EST [facility] Blood Venous blood specimen / Unknown 09/10/2024 09/10/2024 6:15 PM EST Saturnino SHAH LAB BLOOD ORDERABLES Final Res ult Performing Organization Address [facility]/ZIP Co de Phone Number [facility] [address] [place] [address], [place] [phone] from Last 3 Months or Most Recently Relevant to Health Maintenance Insurance [employer] MEDICARE ADVANTAGE Care Teams Web Page Developer Relationship Specialty Start Date End Date Tray Hickman MD [address] [place] [address] PCP - General 07/14/16
--- OUTSIDE RECORDS SUMMARY | 2025-05-16 11:26 | XMS_ITS | Clinical Summary ---
Author Organization [facility] Address [address] [facility] [address] [place] [address] Phone Care Team Providers Care Air Traffic Coordinator Name Role Phone Pcp, Unknown Primary Care Provider Unavailabl e Encounters Date Type Department Care Team Description 05/09/2025 Telephone [facility] [address] [place] [address] Pcp, Unknown same day cancel from Last 3 Months Social History Tobacco Use Types Packs/Day Years Used Date Smoking Tobacco: Never Assessed Education Answer Date Recorded Are you interested in more education? Not on mickey e 09/18/2024 Are you concerned about learning? Not on file 09/18/2024 No 09/18/2024 No 09/18/2024 Digital Access Answer Date Recorded No 09/18/2024 No 09/18/2024 Reliable internet access at home? Not on file 09/18/2024 Device with a working camera? Not on file Sex and Gender Information Value Date Recorded Sex Assigned at Not on file Legal Sex Male 8:07 AM EST Gender Identity Not on file Sexual Orientation Not on file Plan of Treatment Health Maintenance Due Date Last Done Comments Adult Td,Tdap Booster 1950 LIPID PANEL 1951 DEPRESSION SCREENING 1963 SMOKING Hx and SMOKELESS TOB ACCO SCREENING 1964 HEPATITIS C SCREENING 1969 COLOGUARD 1996 COLONOSCOPY 1996 COLORECTAL CANCER SCREENING 1996 FIT TEST 1996 FOBT 1996 SIGMOIDOSCOPY 1996 VIRTUAL COLONOSCOPY 1996 PNEUMOCOCCAL VACCINES (50+ y ears) (1 of 1 - PCV) 2001 ZOSTER VACCINES (1 of 2) 2001 INFLUENZA VACCINE (#1) 2025 COVID-19 VACCINE ( - 2023-2 5 season) 2025 RSV VACCINE (1 - 1-dose 75+ series) 2026 HEPATITIS A VACCINES Aged Out No long er eligible based on patient's age to complete this topic HIB VACCINES Aged Out No longer eligi ble based on patient's age to complete this topic MENINGOCOCCAL VACCINES (ACWY) Aged Out No longer eligible based on patient's age to complete this topic MENINGOCOCCAL VACCINES (B) Aged Out N o longer eligible based on patient's age to complete this topic Medical Devices Not on file Insurance MEDICARE PART A & B MEDICARE PART A & B MEDICARE PART A & B MEDICARE PART A & [place] BLUE REPLACEMENT MEDICARE PART A & B MEDICARE PPO BLUE REPLACEMENT MEDICARE PART A & B Care Teams Air Traffic Coordinator Relationship Specialty Start Date End Date Pcp, Unknown PCP - General 09/18/24 Additional Source Comments The information contained in this document represents components of the legal health record. It is not the complete legal health record.[facility]
--- OUTSIDE RECORDS SUMMARY | 2025-05-16 11:26 | XMS_ITS | Encounter Summary ---
Author Organization [facility] Address [address] [facility] [address] [place] [phone] Phone Care Team Providers Care Pacu Rn Name Role Phone Pcp, Unknown Primary Care Provider Unavailabl e Reason for Visit * Reason Onset Date Comments same day cancel 05/09/2025 Encounter Details Date Type Department Care Team ([facility] st Contact Info) Description 05/09/2025 Telephone [facility] [address] [place], [place] [phone] Pcp, Unknown same day cancel Social History Tobacco Use Types Packs/Day Years [...] on file documented as of this encounter Progress Notes * Richard Guzman - 05/09/2025 9:37 AM EDT 24-48 Hour No-Show Notice If caller not the patient: Name: Relationship: Cancel Appt Visit Type: NEW PATIENT VISIT Cancelation Reason: Sought Care Elsewhere Cancelation Detail: Was Appt Reschedule: No Why Reschedule was not performed (W/Detail) Awareness: I have reiterated our late cancellation policy to the caller. Agent Action: > Reason for Call: NO SHOW > Comment: Enter Cancel Appt date > Route: Route to FD if the No-Show is a future date. > Route: OXBOW SDV and Sick Visit No-Show, route to RN for rescheduling. Do not Call Center: Ensure the appt has been cancel from the future tab > Reiterate Scripting: Provide our late cancellation policy to the caller Required Scripting for Existing Patients: Thank you for notifying us about the cancellation. We will inform the provider. As a reminder, our policy requires at least 24 hours' notice for cancellations, as providers reserve time for your appointment, and short notice often makes it difficult to reschedule. You can cancel appointments anytime through your [facility]. We appreciate your understanding. Required Scripting for New Patients: Thank you for notifying us about the cancellation. We will inform the provider. Please be aware of our 48-hour cancellation policy for new patients. If you need to cancel or reschedule, we ask for at least 48 hours' notice. If you miss an appointment or cancel without sufficient notice, it will be marked as a No-Show appointment. We allow for two unforeseen circumstances under this policy. This policy ensures that our providers can manage their schedules effectively. Additionally, you can cancel appointments anytime through your [facility]. documented in this encounter Plan of Treatment Not on file documented as of this encounter Visit Diagnoses Not on filedocumented in this encounter Care Teams Pacu Rn Relationship Specialty Start Date End Date Pcp, Unknown PCP - General 09/18/24 documented as of this encounter Additional Source Comments The information contained in this document represents components of the legal health record. It is not the complete legal health record.[facility]
--- OUTSIDE RECORDS SUMMARY | 2025-05-16 11:26 | XMS_ITS ---
Author Name [facility] Organization Unknown Results Test Name/Text Value Interpretation Date Range Source Hgb A1c MFr Bld HPLC 5.9 % Above high normal 11/29/2023 - 5.7 [facility] PLATELET NO. BLD AUTO 186.0 K/uL Normal 11/28/2023 150 - 450 [facility] WBC NO. BLD AUTO 8.3 K/uL Normal 11/28/2023 4 - 10.5 [facility] NEUTROPHILS NFR BLD AUTO 72.0 % Normal 11/28/2023 44 - 74 [facility] LYMPHOCYTES NO. BLD AUTO 1.6 K/uL Normal 11/28/2023 1 - 3.2 [facility] HGB BLD MCNC 14.9 g/dL Normal 11/28/2023 13.5 - 18 [facility] MG HCT VFR BLD AUTO 44.1 % Normal 11/28/2023 40 - 54 [facility] EOSINOPHIL NO. BLD AUTO 0.0 K/uL Normal 11/28/2023 0 - 0.5 [facility] RDW RBC AUTO RTO 12.3 % Normal 11/28/2023 12.1 - 17.7 [facility] MONOCYTES NFR BLD AUTO 7.8 % Normal 11/28/2023 2 - 12 [facility] MONOCYTES NO. BLD AUTO 0.6 K/uL Normal 11/28/2023 0 - 0. 8 [facility] DIFFERENTIAL TYPE AUTOMATED Normal 11/28/2023 C [facility] MCV RBC AUTO 97.3 fL Normal 11/28/2023 78 - 100 [facility] MG NEUTROPHILS NO. BLD AUTO 6.0 K/uL Normal 11/28/2023 1.8 - 7.8 [facility] PMV BLD AUTO 9.3 fL Normal 11/28/2023 7.4 - 11.4 [facility] BASOPHILS IN BLOOD BY AUTOMATED COUNT 0.1 K/uL Normal 11/28/2023 0 - 0.2 [facility] BASOPHILS NFR BLD AUTO 0.8 % Normal 11/28/2023 0 - 2 [facility] MCH RBC QN AUTO 32.8 pg Normal 11/28/2023 25 - 33 [facility] RBC NO. BLD AUTO 4.53 M/uL Below low normal 11/28/2023 4.7 - 6 [facility] LYMPHOCYTES NFR BLD AUTO 18.8 % Below low normal 11/28/2023 20 - 48 [facility] MCHC RBC AUTO MCNC 33.7 g/dL Normal 11/28/2023 32 - 36 [facility] EOSINOPHIL NFR BLD AUTO 0.6 % Normal 11/28/2023 0 - 6 [facility] PREALB SERPL NEPH MCNC 37.9 mg/dL Above high normal 11/28/19 17 - 34 [facility] CHLORIDE SERPL SCNC 98.0 mmol/L Normal 11/28/2023 98 - 10 7 [facility] ALBUMIN SERPL BCG MCNC 4.4 g/dL Normal 11/28/2023 3.5 - 5 [facility] HCO3 SER SCNC 30.0 mmol/L Normal 11/28/2023 24 - 32 [facility] SODIUM SERPL SCNC 136.0 mmol/L Normal 11/28/2023 135 - 14 5 [facility] BILIRUB SERPL MCNC 1.7 mg/dL Above high normal 11/28/2023 0. 3 - 1 [facility] Glomerular filtration rate/1.73 sq M. predicted 91.0 Normal 11/28/2023 60 - [facility] AST SERPL CCNC 21.0 U/L Normal 11/28/2023 5 - 40 [facility] ALT SERPL CCNC 23.0 U/L Normal 11/28/2023 7 - 52 [facility] CALCIUM SERPL MCNC 10.3 mg/dL Above high normal 11/28/2023 8 .4 - 10.2 [facility] PROT SERPL MCNC 6.7 g/dL Normal 11/28/2023 6.4 - 8.5 [facility] ALP SERPL-CCNC 57.0 U/L Normal 11/28/2023 34 - 104 [facility] GLUCOSE SERPL MCNC 108.0 mg/dL Normal 11/28/2023 70 - 199 [facility] CREAT SERPL MCNC 0.9 mg/dL Normal 11/28/2023 0.7 - 1.3 [facility] POTASSIUM SERPL SCNC 4.2 mmol/L Normal 11/28/2023 3.5 - 5 .1 [facility] ANION GAP SERPL SCNC 8.0 mmol/L Normal 11/28/2023 5 - 14 [facility] BUN SERPL MCNC 12.0 mg/dL Normal 11/28/2023 9 - 20 [facility] History of Medication Use Medication Directions Dispensed Refills Start Date End Date Stat us meloxicam 15 mg tablet Take one tablet daily for 15 days. 12/01/2023 4 active tranexamic acid 650 mg tablet Take 3 tablets in the morning for 3 days; start on the first day after your surgery. 12/01/2023 4 active Senokot-S 8.6 mg-50 mg tablet Take 1 tablet twice a day by oral route. 12/01/2023 active lisinopril (PRINIVIL,ZESTRIL) tablet 20 mg Take 1 tablet (20 mg total) by mouth daily. 08/24/2023 active cyclobenzaprine 5 mg tablet TAKE 1 TABLET BY MOUTH 3 TIMES A DAY NEEDED. 4 active Senexon-S 8.6 mg-50 mg tablet TAKE 1 TABLET BY MOUTH TWICE A DAY 4 completed tizanidine 4 mg tablet 4 active Asprin Ec Low Dose activ e lisinopril 20 mg tablet active aspirin 81 MG chewable tablet Chew 1 tablet (81 mg total) by mouth daily. active vitamin B-12 (CYANOCOBALAMIN) 100 MCG tablet Take 0.5 tablets (50 mcg total) by mouth daily. active Allergies Allergen Reaction Severity Comment Documented Date Source Statu s ATORVASTATIN OTHER (SEE COMMENTS) Muscle cramping 04/26/2024 [facility] active LIPITOR [facility] [id number] REDUCTASE INHIBITORS [facility] Problems Problem Status Onset Date Problem Type Date of Resolution Source History of prosthetic unicompartmental arthroplasty of right knee active 2024-05-22 ProblemAct [facility] Arthritis of knee active 2023-06-17 ProblemAct [facility] History of operative procedure on knee active 2023-12-20 ProblemAct [facility] Osteoarthritis of left knee joint active 2023-06-17 ProblemAct [facility] Type 2 diabetes mellitus without complication, without long-term current use of insulin active 2023-11-24 ProblemAct [facility] Alcohol abuse active ProblemAct [facility] Osteoarthritis of right knee, unspecified osteoarthritis type active EncounterDiagnosisAct [facility] Osteoarthritis of left knee active 2023-11-24 ProblemAct [facility] History of hyperlipidemia active 2023-11-24 ProblemAct [facility] History of hypertension active 2023-11-24 ProblemAct [facility] Encounters Encounter Type Encounter Reason Primary Diagnosis Location Date Ambulatory [facility] [place] 04/01/2025 Ambulatory [facility] [place] 03/29/2025 Ambulatory [facility] [place] 03/29/2025 Ambulatory [facility] [place] 09/11/2024 Ambulatory [facility] [place] 06/15/2024 Ambulatory [facility] [place] 05/25/2024 Ambulatory [facility] [place] 05/22/2024 Ambulatory ROUTINE Unilateral prima ry osteoarthritis, right knee [facility] 05/08/2024 Ambulatory [facility] [place] 04/17/2024 Ambulatory [facility] [place] 03/13/2024 Ambulatory [facility] [place] 02/21/2024 Ambulatory [facility] [place] 02/20/2024 Ambulatory [facility] [place] 02/15/2024 Ambulatory [facility] [place] 12/31/2023 Ambulatory ROUTINE Unilateral prima ry osteoarthritis, left knee [facility] 12/06/2023 Ambulatory [facility] [place] 08/11/2023 Ambulatory [facility] [place] 07/28/2023 Ambulatory [facility] [place] 06/17/2023 Ambulatory [facility] [place] 06/17/2023 Ambulatory [facility] [place] 06/17/2023 Ambulatory [facility] [place] 06/17/2023 Ambulatory [facility] [place] 06/17/2023 Ambulatory [facility] [place] 01/31/2023 Care Team Organization Name Specialty Phone Email Start Date End Da te [facility] 2023 [facility] 2023
== END 2025-05-16 10:19 | disposition home or self-care (01) ==
LOC: HO.HMCSH 09:40
PROVIDERS: PCP Internal Medicine; Visit Provider Physician Assistant Medical
DX: I10 Essential (primary) hypertension (principal); E11.9 Type 2 diabetes mellitus without complications; E78.5 Hyperlipidemia, unspecified; E53.8 Deficiency of other specified B group vitamins; Z00.00 Encounter for general adult medical examination without abnormal findings; Z23 Encounter for immunization; Z13.9 Encounter for screening, unspecified

== ENCOUNTER → 2025-05-16 09:40 | Outpatient (BNVA) | payer MEDICARE, SELFPAY | PROVIDERS: PCP Internal Medicine; Visit Provider Physician Assistant Medical | DX: Z00.00 Encounter for general adult medical examination without abnormal findings (principal); I10 Essential (primary) hypertension; E11.9 Type 2 diabetes mellitus without complications; E78.5 Hyperlipidemia, unspecified; E53.8 Deficiency of other specified B group vitamins; Z79.84 Long term (current) use of oral hypoglycemic drugs; Z79.899 Other long term (current) drug therapy; Z28.21 Immunization not carried out because of patient refusal; Z13.31 Encounter for screening for depression; Z13.39 Encounter for screening examination for other mental health and behavioral disorders | CPT/HCPCS: 83036; 90471; 96127; 99202 ==

== ENCOUNTER 2025-06-12 10:37 | Outpatient (AMB) | payer MEDICARE, SELFPAY ==
--- OUTSIDE RECORDS SUMMARY | 2024-02-09 06:00 | XMS_ITS ---
Author Organization [facility], [place] Address [address] [facility] 1 [place] [address] Care Team Providers Care Diesel Technician Name Role Phone Migration, Provider Unavailable Unavailable REASON FOR VISIT CPX Encounters Encounter Location Date Provider Diagnosis [facility], [address] [address] 02/09/2024 Provider Migration Plan Of Treatment No Information Progress Notes * KAYLEN ARRIAGADOB: (75 yo M)Acc No.[id number]:02/09/2024 Progress Notes Patient: KAYLEN BRICE Provider: Bryce Red :1950 A ge:73 Y S ex:Male Date:02/09/2024 Address:[address] [place], [place] [phone] Subjective: * Chief Complaints: * C PX * Ocular Surgical History: Objective: Vision Examination: * Electronic signature of Prov ider Migration on 06/12/2025 at 01:33 PM EDT Sign off status: Pending * Provider: Bryce doss Migration Date: 0 02/09/2024 Generated for Babita francis/Ethan/eTransmitting on: 1 01:33 PM EDT
--- OUTSIDE RECORDS SUMMARY | 2024-04-05 05:30 | XMS_ITS ---
Author Organization [facility], [place] Address [address] [facility] 1 [place] [address] Care Team Providers Care Bending Machine Operator Name Role Phone Migration, Provider Unavailable Unavailable REASON FOR VISIT Follow-up Appt Encounters Encounter Location Date Provider Diagnosis [facility], [address] [address] 04/05/2024 Provider Migration Plan Of Treatment No Information Progress Notes * KAYLEN ARRIAGADOB: (75 yo M)Acc No.[id number]:04/05/2024 Progress Notes Patient: KAYLEN BRICE Provider: rByce Red :1950 A ge:73 Y S ex:Male Date:04/05/2024 Address:[address] [place], [place] [phone] Subjective: * Chief Complaints: * F ollow-up Appt * Ocular Surgical History: Objective: Vision Examination: * Electronic signature of Prov ider Migration on 06/12/2025 at 01:31 PM EDT Sign off status: Pending * Provider: Bryce Red Date: 0 04/05/2024 Generated for Babita francis/Ethan/eTransmitting on: 1 01:31 PM EDT
--- OUTSIDE RECORDS SUMMARY | 2024-04-25 06:30 | XMS_ITS ---
Author Organization [facility], [place] Address [address] [facility] 1 [place] [address] Care Team Providers Care Long Term Care Pharmacist Name Role Phone Migration, Provider Unavailable Unavailable REASON FOR VISIT Follow-up Appt Encounters Encounter Location Date Provider Diagnosis [facility], [address] [address] 04/25/2024 Provider Migration Plan Of Treatment No Information Progress Notes * KAYLEN ARRIAGADOB: (75 yo M)Acc No.[id number]:04/25/2024 Progress Notes Patient: KAYLEN BRICE Provider: Bryce Red :1950 A ge:73 Y S ex:Male Date:04/25/2024 Address:[address] [place], [place] [phone] Subjective: * Chief Complaints: * F ollow-up Appt * Ocular Surgical History: Objective: Vision Examination: * Electronic signature of Prov ider Migration on 06/12/2025 at 01:33 PM EDT Sign off status: Pending * Provider: Bryce Red Date: 0 04/25/2024 Generated for Babita francis/Ethan/eTransmitting on: 1 01:33 PM EDT
--- OUTSIDE RECORDS SUMMARY | 2024-09-10 07:30 | XMS_ITS ---
Author Organization [facility], [place] Address [address] [facility] 1 [place] [address] Care Team Providers Care Nib Inspector Name Role Phone Migration, Provider Unavailable Unavailable REASON FOR VISIT Follow-up Appt Encounters Encounter Location Date Provider Diagnosis [facility], [address] [address] 09/10/2024 Provider Migration Plan Of Treatment No Information Progress Notes * KAYLEN ARRIAGADOB: (75 yo M)Acc No.[id number]:09/10/2024 Progress Notes Patient: KAYLEN BRICE Provider: Bryce Red :1950 A ge:74 Y S ex:Male Date:09/10/2024 Address:[address] [place], [place] [phone] Subjective: * Chief Complaints: * F ollow-up Appt * Ocular Surgical History: Objective: Vision Examination: * Electronic signature of Prov ider Migration on 06/12/2025 at 01:32 PM EDT Sign off status: Pending * Provider: Bryce Red Date: 0 09/10/2024 Generated for Babita francis/Ethan/eTransmitting on: 1 01:32 PM EDT
--- OUTSIDE RECORDS SUMMARY | 2024-09-10 07:30 | XMS_ITS ---
Author Organization [facility], [place] Address [address] [facility] [address] [place] [address] Care Team Providers Care Animal Husbandry Manager Name Role Phone Saturnino Howell Unavailable [phone] REASON FOR VISIT Follow-up Appt Encounters Encounter Location Date Provider Diagnosis [address] [address] 09/10/2024 Saturnino Howell Plan Of Treatment No Information Progress Notes * KAYLEN ARRIAGADOB: (75 yo M)Acc No.[id number]:09/10/2024 Progress Notes Patient: KAYLEN BRICE Provider: López SHAH :1950 A ge:74 Y S ex:Male Date:09/10/2024 Address:[address] [place], [place] [phone] Subjective: * Chief Complaints: * F ollow-up Appt * Ocular Surgical History: Objective: Vision Examination: * Electronic signature of Jordan Howell PA-C on 06/12/2025 at 01:32 PM EDT Sign off status: Pending * Provider: López SHAH Date: 0 09/10/2024 Generated for Kelleni ng/Fajoseg/eTransmitting on: 1 01:32 PM EDT
--- NOTE | 2025-06-12 10:37 | A.OFFPC_ITS ---
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 Accompanied by: Self / Same As Patient Allergies liptor Allergy (Intermediate, Uncoded 06/12/25 10:55) sore muscles Medication List - Last Reconciled 06/12/25 by Hermelinda Celis PA-C lisinopril 20 mg PO DAILY metformin 1,000 mg (2 x 500 mg) PO BID 90 days simvastatin 40 mg PO DAILY Tobacco use date assessed: 06/12/25 Fall risk assessment: 1 Fall in past year Last assessed Fall Risk: 06/12/25 Dental Screening Dental Screen Date: 06/12/25 Did you have a dental visit in the last 12 months?: Yes Was dental information given to patient?: Patient has dentist HPI bhavna removal from head HPI Details The patient is a 75-year-old male presenting with a laceration requiring staple removal. The injury occurred near a stone wall by a shah when the patient tripped while picking something up. The bhavna were placed at a local hospital with the assistance of the fire department. The bhavna were inserted approximately a week ago, on the , and the patient was advised to have them removed within 5 to 7 days. The patient reports numbness around the wound site, which has persisted since the bhavna were plac ed, indicating possible nerve damage. The patient lives with a female partner and does not require additional assistance at home. There is no need for medication refills, and the patient denies any headaches or symptoms suggestive of a concussion. Social History - Lives with a female partner - Does not require additional assistance at home [facility] Medical History (Updated 06/12/25 @ 11:13 by Hermelinda Celis PA-C) Removal of bhavna Visit for wound check Paresthesias Preventative health care Vitamin B12 deficiency Hyperlipidemia Type 2 diabetes mellitus with hemoglobin A1c goal of less than 7.0% Hypertension Family History Mother No problems noted. Father No problems noted. Social History Housing: House Alcohol intake: current Patient Tobacco Use Status: Current someday Tobacco user Tobacco use type: Cigar service: No Current occupational status: retired Cognitive needs: No Hearing needs: No Vision needs: Yes (rx glasses) Questionnaire PHQ-9 Over the last 2 weeks, how often have you been bothered by any of the following problems? 1. Little interest or pleasure in doing things: not at all 2. Feeling down, depressed, or hopeless: not at all 3. Trouble falling or staying asleep, or sleeping too much: not at all 4. Feeling tired or having little energy: not at all 5. Poor appetite or overeating: not at all 6. Feeling bad about yourself - or that you are a failure or have let yourself or your family down: not at all 7. Trouble concentrating on things, such as reading the newspaper or watching television: not at all 8. Moving or speaking so slowly that other people could have noticed. Or the opposite - being so fidgety or restless that you have been moving around a lot more than usual: not at all 9. Thoughts that you would be better off or of hurting yourself in some way: not at all Total score: 0 Depression Screening Interpretation: Negative Depression Screening Done: Yes 13245 - PHQ-9 Billing: Yes Source: Developed by Drs. Collin Eng, Vida Bear, Addison Wilkinson and colleagues, with an educational keith from [employer]. Thrive Questionnaire Date Thrive assessed: 06/12/25 I am a: Patient What is your living situation today?: I have a steady place to live Within the past 12 months, did the food you bought not last and you didn't have the money to get more?: Never true Within the past 12 months, did you worry whether your food would run out before you got money to buy more?: Never true Do you have trouble paying for medicines?: No Do you have trouble getting transportation to medical appointments?: No Do you have trouble paying your heating and electricity bill?: No Do you have trouble taking care of your child, family member or friend?: No Do you have trouble with day-to-day activities such as bathing, preparing meals, shopping, managing finances, etc.?: No Are you currently unemployed and looking for a job?: No Are you interested in more education?: No Please select the resources that you would like help with: None THRIVE Score: 0 AUDIT C Alcohol Use Questionnaire (AUDIT-C) 1. How often do you have a drink containing alcohol?: 2-3 times a week 2. How many drinks containing alcohol do you have on a typical day when you are drinking?: 1 or 2 3. How often do you have six or more drinks on one occasion?: Never Total Score: 3 Score Reviewed/Action Taken: No CARLOTA-7 AMB Questionnaire CARLOTA-7 Date CARLOTA - 7 assessed: 06/12/25 Feeling nervous, anxious, or on edge: 0 = Not at all Not being able to stop or control worryin = Not at all Worrying too much about different things: 0 = Not at all Trouble relaxin = Not at all Being so restless that it is hard to sit still: 0 = Not at all Becoming easily annoyed or irritable: 0 = Not at all Feeling afraid as if something awful might happen: 0 = Not at all Total CARLOTA-7 score (0-4 normal; 5-9 mild; 10-14 moderate; 15-21 severe): 0 Source: Developed by Drs. Collin Eng, Vida Bear, Addison Wilkinson and colleagues, with an educational keith from [employer]. CARLOTA-7 Assessment Billing CARLOTA-7 Assessment Tool: CARLOTA-7 Assessment 64124 Review of Systems Const Details: - Neurological: Reports numbness around the wound site. Denies headaches or symptoms of concussion. All systems reviewed & are unremarkable except as noted in HPI and below Physical exam (Primary Care) Vital Signs: Last Vital Signs Temp 98.7 F 06/12/25 10:41 Pulse 71 06/12/25 10:41 BP 141/77 H 06/12/25 10:41 Pulse Ox 98 06/12/25 10:41 Oxygen Delivery Method Room Air 06/12/25 10:41 BMI result Body Mass Index 25.4 Tobacco/Smoking Status: Tobacco use Status Tobacco use date assessed 06/12/25 06/12/25 10:39 Patient Tobacco Use Status Current someday Tobacco 06/12/25 10:39 Tobacco use type Cigar 06/12/25 10:39 PHQ-9: PHQ-9 Score PHQ-9: Total score 0 06/12/25 10:46 Depression Screening Interpretation: Negative Thrive Assessment: Date of Thrive Assessment Date Thrive assessed 06/12/25 06/12/25 10:39 Const Other: Appearance: Alert. Oriented X3. No acute distress. Head: Normal external exam. Normocephalic. Atraumatic. Presence of a scar with scabbing and a small lump noted on the head. Piffard removed, with a total of 31 counted. Eyes: Pupils are equal, round, and reactive to light. Extraocular movements intact. Conjunctiva and sclera normal. Eyelids normal. Throat: Pharynx normal. Uvula midline. Moist mucous membranes. Neck: Normal inspection. Neck supple. Full range of motion Cardiovascular: Normal heart rate and rhythm. Respiratory: No respiratory distress. Painless inspiration. Back: Full range of motion noted. Skin: Skin warm and dry. Normal skin color. Normal skin turgor. No rashes/lesions/lacerations noted. Minor bleeding noted at the site of staple removal, but not actively bleeding. Extremities: No lower extremity edema. Extremities exhibit normal range of motion. Neuro: Oriented X 3. No motor deficit. No sensory deficit. Reflexes normal. Reports numbness around the wound area, possibly indicating minor nerve damage. No headaches or signs of concussion reported. Office Procedures Flu Questionnaire Does the patient have a severe egg allergy?: No Does the patient have severe life threatening allergies?: No Does the patient have a fever or illness today?: No Has the patient ever had Guillain-[place] Syndrome?: No Has the patient ever had any past reaction to a flu shot?: No Immunizations Fluarix [id number] (PF) 45 mcg (15 mcg x 3)/0.5 mL IM syringe Performing Provider: Hermelinda Celis PA-C Per[facility] [place] [facility] Documented (not given) by: Danica Da Silva CMA on 06/12/25 10:46 Reason Not Given: Patient Refused Results Reviewed Results Reviewed: Thirty-one bhavna removed from the patient's left side of his scalp. Patient tolerated procedure well. No complications. No signs of active infection. Coding Level of Care Code Est Pt Level 4 (12169) Complex EM visit Add On G2211 Diagnoses Removal of bhavna Z48.02 Paresthesias R20.2 Visit for wound check Z51.89 Additional Codes CARLOTA-7 Assessment Billing - CARLOTA-7 Assessment Tool: CARLOTA-7 Assessment 97342 ([id number]) PHQ-9 - 29299 - PHQ-9 Billing: Yes ([id number]) Assessment & Plan Assessment & Plan (1) Removal of bhavna: Code(s): Z48.02 - Encounter for removal of sutures Category: Medical Plan: The plan includes the removal of 31 bhavna from the scalp, ensuring minimal discomfort during the procedure. Post-removal care involves keeping the area clean with soap and water, avoiding ointments, and allowing the wound to dry naturally. The patient is advised to monitor for any signs of infection or complications and to follow up as needed. (2) Paresthesias: Code(s): R20.2 - Paresthesia of skin Category: Medical Plan: The numbness is likely due to nerve damage from the injury or staple placement. No immediate intervention is planned, but the patient should report any changes or worsening of symptoms. (3) Visit for wound check: Code(s): Z51.89 - Encounter for other specified aftercare Category: Medical Plan: Wound is well healing no signs of active infection. Plan Plan Patient was informed and verbally consented to the use of an ambient scribe for clinic note documentation during this visit. 1. Laceration With Piffard In The Scalp The plan includes the removal of 31 bhavna from the scalp, ensuring minimal discomfort during the procedure. Post-removal care involves keeping the area clean with soap and water, avoiding ointments, and allowing the wound to dry naturally. The patient is advised to monitor for any signs of infection or complications and to follow up as needed. 2. Numbness Around The Wound Site The numbness is likely due to nerve damage from the injury or staple placement. No immediate intervention is planned, but the patient should report any changes or worsening of symptoms. During the visit, I discussed the removal of 31 bhavna from the patient's scalp, emphasizing the importance of post-removal care to prevent infection. I advised the patient to keep the area clean and dry, avoid ointments, and monitor for any signs of complications. We also discussed the numbness around the wound site, likely due to nerve damage, and the patient was instructed to report any changes. Orders: Orders Influenza [id number] Immunization Today Z23 - Encounter for immunization Patient Instructions: - Keep the wound area clean with soap and water. - Avoid using ointments on the wound. - Allow the wound to dry naturally. - Monitor for signs of infection or complications. - Report any changes in numbness or new symptoms.
[2025-06-12 10:41] VITALS: BP 141/77; PULSE 71; TEMP 37.1; O2SAT 98; BMI 25.4
--- OUTSIDE RECORDS SUMMARY | 2025-06-12 13:32 | XMS_ITS | Encounter Summary ---
Author Organization [facility] Address [address] [place] [address] Care Team Providers Care Investigative Analyst Name Role Phone Tray Hickman MD Primary Care Provider Encounter Details Date Type Department Care Team (Latest Contact Info) Description 09/10/2024 Lab Requisition [facility] - Main Lab [address] [facility] [place] [address] Saturnino Howell PA [address] [facility] [address] [place] [address] Hyperlipidemia, unspecified; Type 2 diabetes mellitus without [...] Hold for add-ons. 09/10/2024 8:01 PM EST [facility] Comment:Auto resulted. Blood Venous blood specimen / Unknown 09/10/2024 09/10/2024 6:36 PM EST us Saturnino SHAH LAB BLOOD ORDERABLES Final Res ult [facility] [address] [place] [address], [place] [phone] * (ABNORMAL) Hemoglobin A1c (09/10/2024 12:00 AM EST) Hemoglobin A1C 6.5(H) <6.5 % LAB CHEMISTRY METHOD 09/10/2024 9:47 PM EST [facility] Mean Bld Glu Estim. 140 mg/dL LAB CHEMISTRY METHOD 09/10/2024 9:47 PM EST [facility] Blood Venous blood specimen / Unknown 09/10/2024 09/10/2024 6:15 PM EST us Saturnino SHAH LAB BLOOD ORDERABLES Final Res ult Performing Organization Address [facility]/ZIP Co de Phone Number [facility] [address] [place] [address], * Creatinine (09/10/2024 12:00 AM EST) Creatinine 0.82 0.70 - 1.30 mg/dL LAB CHEMISTRY METHOD 09/10/2024 7:05 PM [facility] eGFR 93 >=60 mL/min/1. 73m2 LAB CHEMISTRY METHOD 09/10/2024 7:05 PM EST [facility] Comment:Calculation based on the Chronic Kidney Disease Epidemiology Collaboration (CKD-EPI) equation refit without adjustment for race. Blood Venous blood specimen / Unknown 09/10/2024 09/10/2024 6:15 PM EST us Saturnino SHAH LAB BLOOD ORDERABLES Final Res ult Performing Organization Address [facility] de Phone Number [facility] [address] [place] [address], * BUN (09/10/2024 12:00 AM EST) BUN 10 5 - 25 mg/dL LAB CHEMISTRY METHOD 09/10/2024 7:05 PM EST [facility] Blood Venous blood specimen / Unknown 09/10/2024 09/10/2024 6:15 PM EST us Saturnino SHAH LAB BLOOD ORDERABLES Final Res ult [facility] [address] [place] [address], [place] [phone] * LDL cholesterol, direct (09/10/2024 12:00 AM EST) Pathologist [facility] LDL Direct 84 <=100 mg/dL LAB CHEMISTRY METHOD 09/10/2024 7:05 PM [facility] Blood Venous blood specimen / Unknown 09/10/2024 09/10/2024 6:15 PM EST Saturnino SHAH LAB BLOOD ORDERABLES Final Res ult [facility] [address] [place] [address], [place] [phone] * Hepatic function panel (09/10/2024 12:00 AM EST) Pathologist [facility] Total Protein 6.5 6.0 - 8.0 g/dL LAB CHEMISTRY METHOD 09/10/2024 7:05 PM [facility] Albumin 4.1 3.2 - 5.0 g/dL LAB CHEMISTRY METHOD 09/10/2024 7:05 PM [facility] Total Bilirubin 1.0 0.0 - 1.4 mg/dL LAB CHEMISTRY METHOD 09/10/2024 7:05 PM [facility] Bilirubin, Direct 0.2 0.0 - 0.3 mg/dL LAB CHEMISTRY METHOD 09/10/2024 7:05 PM [facility] Bilirubin, Indirect 0.8 0.0 - 1.1 mg/dL LAB CHEMISTRY METHOD 09/10/2024 7:05 PM [facility] ALT (SGPT) 20 10 - 60 unit/L LAB CHEMISTRY METHOD 09/10/2024 7:05 PM [facility] AST (SGOT) 12 10 - 42 unit/L LAB CHEMISTRY METHOD 09/10/2024 7:05 PM [facility] Alkaline Phosphatase 72 42 - 121 unit/L LAB CHEMISTRY METHOD 09/10/2024 7:05 PM EST [facility] Blood Venous blood specimen / Unknown 09/10/2024 09/10/2024 6:15 PM EST us Saturnino SHAH LAB BLOOD ORDERABLES Final Res ult [facility] [address] [place] [address], [place] [phone] * Lipid panel with reflex to direct LDL (09/10/2024 12:00 AM EST) Cholesterol 166 0 - 200 mg/dL LAB CHEMISTRY METHOD 09/10/2024 7:05 PM [facility] Triglycerides 129 0 - 150 mg/dL LAB CHEMISTRY METHOD 09/10/2024 7:05 PM [facility] HDL 59 >=40 mg/dL LAB CHEMISTRY METHOD 09/10/2024 7:05 PM [facility] LDL Calculated 81 0 - 100 mg/dL LAB CHEMISTRY METHOD 09/10/2024 7:05 PM [facility] VLDL Cholesterol Eleazar 25.8 mg/dL LAB CHEMISTRY METHOD 09/10/2024 7:05 PM [facility] Non HDL Chol. (LDL+VLDL) 107 <145 mg/dL LAB CHEMISTRY METHOD 09/10/2024 7:05 PM [facility] Chol/HDL Ratio 2.8 0.0 - 4.4 LAB CHEMISTRY METHOD 09/10/2024 7:05 PM [facility] Blood Venous blood specimen / Unknown 09/10/2024 09/10/2024 6:15 PM EST us Saturnino SHAH LAB BLOOD ORDERABLES Final Res ult [facility] [address] [place] [address], [place] [phone] * (ABNORMAL) Electrolyte panel (09/10/2024 12:00 AM EST) Sodium 132(L) 133 - 145 mmol/L LAB CHEMISTRY METHOD 09/10/2024 7:05 PM EST [facility] Potassium 3.9 3.5 - 5.5 mmol/L LAB CHEMISTRY METHOD 09/10/2024 7:05 PM EST [facility] Chloride 100 96 - 110 mmol/L LAB CHEMISTRY METHOD 09/10/2024 7:05 PM [facility] CO2 27 21 - 32 mmol/L LAB CHEMISTRY METHOD 09/10/2024 7:05 PM [facility] Anion Gap 5 3 - 11 LAB CHEMISTRY METHOD 09/10/2024 7:05 PM [facility] Blood Venous blood specimen / Unknown 09/10/2024 09/10/2024 6:15 PM EST Saturnino SHAH LAB BLOOD ORDERABLES Final Res ult [facility] [address] [place] [address], [place] [phone] documented in this encounter Visit Diagnoses Diagnosis Hyperlipidemia, unspecified Type 2 diabetes mellitus without complications (CMS/HCC V24, CMS/HCC V28) Essential (primary) hypertension Unspecified essential hypertension documented in this encounter Care Teams Investigative Analyst Relationship Specialty Start Date End Date Tray Hickman MD [address] [address] PCP - General 07/14/16 documented as of this encounter
--- OUTSIDE RECORDS SUMMARY | 2025-06-12 13:32 | XMS_ITS | Clinical Summary ---
Author Organization [address] Address [address] [place] [phone] Phone Care Team Providers Care Account Advisor Name Role Phone Tray Hickman MD Primary Care Provider [phone] Surgical History Surgery Date Site/Laterality Comments KNEE ARTHROSCOPY W/ MENISCECTOMY Bilateral PROCEDURE:KNEE ARTHROSCOPY W/ MENISCECTOMY;COMMENT:several years ago COLONOSCOPY PROCEDURE:COLONOSCOPY PARTIAL KNEE ARTHROPLASTY 11/2023 Left Medial PROCEDURE:PARTIAL KNEE ARTHROPLASTY Medical History Medical History Date Comments Hypertension DX:Hypertension Diabetes mellitus (CMS/HCC V 24, CMS/HCC V28) DX:Diabetes mellitus ([facility]) High cholesterol DX:High cholest caro Alcohol abuse [...] Health Maintenance Due Date Last Done Comments Colorectal Cancer Screening: Colonoscopy 1951 Diabetes: Annual Foot Exam 1961 Diabetes: Annual Retina Eye Exam 1961 DTaP,Tdap,and Td Vaccines (1 - Tdap) 1970 Hepatitis A Vaccines (1 of 2 - Risk 2-dose series) 1970 Pneumococcal Vaccine: 50+ Years (1 of 2 - PCV) 1970 Abdominal Aortic Aneurysm (AAA) Screen 07/21/2022 Falls Risk Assessment 07/21/2022 Hepatitis C Screening 07/21/2022 Medicare Annual Wellness Visit 07/21/2022 Social Influencers of Health Screening 07/21/2022 Diabetes: Annual Urine Albumin-Creatinine Ratio (uACR) 03/17/2024 Depression Screening 08/22/2024 Diabetes: Blood Sugar Control Test (HGBA1C) 03/10/2025 09/10/2024, 04/25/2024, 11/28/2023, Additional history exists COVID-19 Vaccine ( season) 2025 07/03/2024, 07/01/2023, 12/30/2021, Additional history exists Influenza Vaccine (#1) 2025 Diabetes: Annual GFR (Glomerular Filtration Rate) 09/10/2025 09/10/2024, 11/28/2023, 11/28/2023 Hypertension/CHF/CAD Annual BMP Blood Test 09/10/2025 09/10/2024, 11/28/2023, 11/28/2023 RSV Immunization Adult Patients (1 - 1-dose 75+ series) 2026 Cholesterol Screening (Lipid Panel) 09/10/2029 09/10/2024, 09/10/2024 Zoster Vaccines Completed 02/14/2023, 11/06/2022 HIB Vaccines Aged Out No longer eligi [...] unspecified Type 2 diabetes mellitus without complications ([facility]/HCC) Essential (primary) hypertension from Last 3 Months or Most Recently Relevant to Health Maintenance Results * Creatinine (09/10/2024 12:00 AM EST) Creatinine 0.82 0.70 - 1.30 mg/dL LAB CHEMISTRY METHOD 09/10/2024 7:05 PM EST [facility] eGFR 93 >=60 mL/min/1. 73m2 LAB CHEMISTRY METHOD 09/10/2024 7:05 PM EST [facility] Comment:Calculation based on the Chronic Kidney Disease Epidemiology Collaboration (CKD-EPI) equation refit without adjustment for race. Blood Venous blood specimen / Unknown 09/10/2024 09/10/2024 6:15 PM EST us aSturnino SHAH LAB BLOOD ORDERABLES Final Res ult [facility] [address] [place] [address], [place] [phone] * LDL cholesterol, direct (09/10/2024 12:00 AM EST) LDL Direct 84 <=100 mg/dL LAB CHEMISTRY METHOD 09/10/2024 7:05 PM EST [facility] Blood Venous blood specimen / Unknown 09/10/2024 09/10/2024 6:15 PM EST Saturnino SHAH LAB BLOOD ORDERABLES Final Res ult [facility] [address] [place] [address], [place] [phone] * (ABNORMAL) Hemoglobin A1c (09/10/2024 12:00 AM EST) Hemoglobin A1C 6.5(H) <6.5 % LAB CHEMISTRY METHOD 09/10/2024 9:47 PM EST [facility] Mean Bld Glu Estim. 140 mg/dL LAB CHEMISTRY METHOD 09/10/2024 9:47 PM EST [facility] Blood Venous blood specimen / Unknown 09/10/2024 09/10/2024 6:15 PM EST Saturnino SHAH LAB BLOOD ORDERABLES Final Res ult Performing Organization Address City/[facility]/ZIP Co de Phone Number [facility] [address] [place] [address], [place] [phone] from Last 3 Months or Most Recently Relevant to Health Maintenance Insurance [facility] [place] [id number] [employer] [place] MEDICARE ADVANTAGE Care Teams Account Advisor Relationship Specialty Start Date End Date Tray Hickman MD [address] [address] PCP - General 07/14/16
--- OUTSIDE RECORDS SUMMARY | 2025-06-12 13:32 | XMS_ITS | Patient Health Record ---
Author Organization [facility] [place] Address [address] [facility] [address] [place] [address] Care Team Providers Care Proof Passer Name Role Phone Saturnino Howell Unavailable [phone] Migration, Provider Unavailable Unavailable Reason For Referral No Information Encounters Encounter Location Date Provider Diagnosis [facility] [address] [phone] 09/10/2024 Provider Migration [address] [phone] 09/10/2024 Saturnino Howell Plan Of Treatment No Information Insurance Providers Payer Name Payer Address Payer Phone Subscriber Number Group Number Insured Name Patient Relationship to Insured Coverage Start Date Coverage End Date [employer] [place] [employer] Pf [address] [place] [phone] [id number] KAYLEN ARRIAGA Self - patient is the insured
--- OUTSIDE RECORDS SUMMARY | 2025-06-12 13:33 | XMS_ITS | Data Portability ---
Author Organization [place] [facility] Barnett AONE [facility] Address [address] [place] [address] Care Team Providers Care Auto Fleet Maintenance Manager Name Role Phone HOLLEY MOROCHO Referring Provider Assessment Encounter Date Assessment Date Assessment LastModified by Organization Details LastModified Time 04/26/2024 04/26/2024 Patient opted fo r a telephone visit because it is clinically appropriate for the information reviewed and meets the patient's technological ability and equipment access. I confirmed patient identity verbally and they were advised about video/telephone delivery of care, HIPAA privacy and risk of communicating over appropriate video capable devices. The use of audio-only or video telecommunication technology is consistent with state and federal requirements. Patient stated understanding of the limitation of the treatment provided via audio/video and consents to this visit today. Patient stated they are comfortable that they are in a quiet and private location to speak freely about their health. The patient understands that today's visit will be submitted to the patient's insurance and may incur a co-pay or deductible. Patient is scheduled for right uni knee arthroplasty at [facility]. They have significant joint pain, dysfunction and disability that impact many of their activities of daily living. They have failed to respond to alternate, conservative treatment measures. Physical Exam: Patient is located at their home. The patient's calculated BMI is . Patient is awake, alert and oriented to person, place and time. They are interacting appropriately with this examiner. They are asking and answering questions appropriately. Speech is clear and intelligible. The patient's communication skills do not indicate any significant neurologic dysfunction. After careful review of patient history and their individual risk factors for infection, they will require additional antibiotic coverage after surgery. It has been determined that ASA is the appropriate medication for the prevention of DVT/PE. The patient wishes to be discharged home on the day of surgery. All questions were answered to the patients' satisfaction. More than twenty total minutes have been spent on this patient encounter plus a review of relevant imaging tests, medical history, medication lists, and medical clearance documents. This patient was seen and evaluated by Ángel Mckenzie MS, PA-C in indirect conjunction with documenting/supervi sing provider Mike Pompa MD. He agrees with history, physical examination, tests/diagnostic imaging, and treatment plan. Not available 04/26/2024 14:51:26 05/22/2024 05/22/2024 HPI : Patient is doing well at 2 week follow up status post right uni knee arthroplasty. They deny fever, chest pain and shortness of breath. They are compliant with anticoagulation protocol. He has not encountered any specific problems since the date of his surgery. He reports that he is having more discomfort and swelling and more restriction on his motion than he did with the contralateral unicompartmental arthroplasty. He is noticing improvements from 1 day to the next. He is compliant with aspirin for DVT prophylaxis. He does have plans to get started on outpatient physical therapy soon. Physical Exam : Patient is well nourished, well- developed, in no acute distress, with appropriate mood and affect. The patient demonstrates good knee strength. The incision is clean and dry with no sign of infection. Negative calf tenderness and Wiley's sign. Range of motion is from 0-95 degrees. Assessment/Plan : The patient is doing well status post knee arthroplasty. Continue 28 day course of anticoagulation therapy. The patient will do physical therapy and return for follow-up in 1 month for re-evaluation; sooner with any problems. This patient was seen and evaluated by Ángel Mckenzie MS, PA-C in indirect conjunction with documenting/Trunk Showi sing provider Mike Pompa MD. He agrees with history, physical examination, tests/diagnostic imaging, and treatment plan. Not available 05/22/2024 09:46:46 06/19/2024 06/19/2024 HPI : Patient is here for a 6 week follow-up from a right medial unicondylar knee replacement. He is coming well. He reports really no pain. He has good function. He is doing therapy on his own. He does report some increased stiffness compared to the contralateral knee which is 6 months out. Physical Exam : Patient is well nourished, well- developed, in no acute distress, with appropriate mood and affect. The patient is AAOx3. The patient demonstrates good right knee motion and strength. The incision is well healed. Range of motion today is 5 to 115 degrees. Assessment/Plan : The patient is functioning well 6 weeks from total knee arthroplasty. Continue physical therapy as needed. Return for follow-up in 2 months with x-rays at that time. [email or web address] Not available 06/19/2024 14:58:00 08/21/2024 08/21/2024 HPI : Patient is here for 3 month(s) follow-up for a right uni knee replacement. P socorro reports good pain relief in the knee and satisfactory restorationist of function in terms of activities of daily living. Current condition is improved relative to their pre operative condition. They have not encountered any major problems since their last office visit. He is very pleased with the results of his right sided medial unicompartmental knee arthroplasty. He is back to a high level of comfort and function. He reports that it is a little achy and stiff when he first stands to start walking. [place] surfaces without any difficulty. Physical Exam : Patient is well nourished, well-developed, in no acute distress, with appropriate mood and affect. The patient is oriented to time, place, and person. Respirations are even and unlabored. The affected limb is well-perfused, with well healed skin incision. The patient demonstrates good knee motion, stability, and strength. The knee moves from 0-120 degrees. Muscle strength is normal. Pedal pulses are palpable. X-Ray: Five view x-ray study of the postoperative knee(s) obtained during today's office encounter does not show any signs of implant related issues including loosening, malposition, instability, periprosthetic fracture, periosteal reaction or infection. Assessment/Plan : This patient is functioning well after knee arthroplasty. Continue knee conditioning exercises. Whmr-xmq-kzpkzdr medications as needed. The patient understands that ultimate failure may occur due to mechanical wear, loosening or breakage. Follow-up at approximately one year post-op is recommended to assess for the possibility of failure. Follow up sooner with any problems. Follow-up in February 2025 will roughly coincide with the anniversary date of right and left sided partial knee arthroplasties. At least 25 minutes were spent reviewing previous charting and radiographs, obtaining history and physical exam, and reviewing treatment plan. This patient was seen and evaluated by Ángel Mckenzie MS, AILIN in indirect conjunction with documenting/supervi sing provider Mike Pompa MD. He agrees with history, physical examination, tests/diagnostic imaging, and treatment plan. Not available 08/21/2024 14:27:40 03/29/2025 03/29/2025 HPI : Patient is here for 1 year follow-up for a bilateral uni knee replacement. Right knee done on 05/08/2024 and left knee done on 12/06/2023. P atient reports good pain relief in the knee and satisfactory restorationist of function in terms of activities of daily living. Current condition is improved relative to their pre operative condition. They have not encountered any major problems since their last office visit. He is very pleased with the long-term results of his bilateral unicompartmental knee arthroplasties. He is back to a high level of comfort and function. He still reports some mild stiffness and weakness on start up but that tends to resolve after taking a few steps. He is much improved relative to his preoperative condition. Physical Exam : Patient is well nourished, well-developed, in no acute distress, with appropriate mood and affect. The patient is oriented to time, place, and person. Respirations are even and unlabored. The affected limb is well-perfused, with well healed skin incision. The patient demonstrates good knee motion, stability, and strength. The knee moves from 0-120 degrees on the right and 0 to 130 degrees on the left. Muscle strength is normal. Pedal pulses are palpable. X-Ray: Five view x-ray study of the postoperative knee(s) obtained during today's office encounter does not show any signs of implant related issues including loosening, malposition, instability, periprosthetic fracture, periosteal reaction or infection. Assessment/Plan : This patient is functioning well after knee arthroplasty. Continue knee conditioning exercises. Fwzm-nyu-mcasora medications as needed. The patient understands that ultimate failure may occur due to mechanical wear, loosening or breakage. Follow-up at approximately five year post-op is recommended to assess for the possibility of failure. Follow up sooner with any problems. At least 25 minutes were spent reviewing previous charting and radiographs, obtaining history and physical exam, and reviewing treatment plan. This patient was seen and evaluated by Ángel Mckenzie MS, PA-C in indirect conjunction with documenting/supervi sing provider Mike Pompa MD. He agrees with history, physical examination, tests/diagnostic imaging, and treatment plan. Not available 03/29/2025 11:22:07 Plan of Treatment Reminders Order Date Submit Date Provider Last Modified By Organization Details Last Modified Time Details Appointments None record ed. Lab None record ed. Referral None record ed. Procedures None record ed. Surgeries None record ed. Imaging XR, knee, 4 or more view 025 03/29/20 25 [email or web address] 8 [facility], [address], [place], [address], 5 11:38:30 XR, knee, 4 or more view 025 03/29/20 25 [email or web address] 8 [facility], [address], [place], [address], 5 11:38:30 XR, knee, 3 view 024 08/21/20 24 [facility], [address], [place], [address], 4 14:29:03 Medication Orders None record ed. Patient TargetsNo targets recorded. Patient Instructions Encounter Date Encounter Id Patient Instructions Last Modified By Organization Details Last Modified Time 05/22/2024 [id number] physical therapy * - Diagnosis: Status post right-sided medial unicompartmental arthroplasty Evaluate and treat as indicated to reduce pain and to improve strength, mobility, stability, range of motion, and function. Please teach a home exercise plan and incorporate PT into patient's exercise routine. 2-3 sessions weekly for 6-8 weeks. [email or web address] Not available 05/29/2024 08:53:10 Reason for Referral None Reported. Results Created Date Observation Date Name Description Value Unit Range Abnormal Flag Note LastModifiedBy Organization Detail LastModifiedTime 04/04/20 24 04/04/2024 CT, knee, w/o contr ast No observ ation record ed. [email or web address] [facility] [address], [place], [address], 04/06/2024 03:26:43 Result Notes None recorded. Problems Name Problem SNOMED Code Status Onset Date Resolution Date Notes Provider Name and Address Organization Details Recorded Time Osteoarth ritis of left knee joint 48121751397 9109 Active 2022 Mike Pompa MD [address], [place], [address] , [place] [facility] 3 12:13:53 Arthritis of knee 185798031 Active 2022 Mike Pompa MD [address], [place], [address] , [place] [facility] 3 12:14:22 History of hypertens ion 091687132 Active 2023 History of hypertens ion Not Available [facility] 5 23:10:58 History of raised blood lipids 350003518 Active 2023 History of hyperlipi demia Not Available [facility] 5 23:10:58 Type 2 diabetes mellitus without complicat ion 894683952 Active 2023 Type 2 diabetes mellitus without complicat ion, without long-term current use of insulin Not Available [facility] 5 23:10:59 History of operative procedure on knee 399249173 Active 2023 ÁNGEL MCKENZIE PA-C [address], [place], [address] , [place] [facility] 4 10:26:14 Harmful pattern of use of alcohol 55602096 Active 2023 Alcohol abuse - Overview: Formattin g of this note might be different from the original. 04/26/2024 Sober 30 days Not Available [facility] 5 23:10:59 History of prostheti c unicompar tmental arthropla sty of right knee 85941721538 55363 Active 2023 ÁNGEL MCKENZIE PA-C [address], [place], [address] , [place] [facility] 4 09:39:58 Problem Notes None recorded. Procedures Surgical History Date Name Laterality Status Provider Name and Address Organization Details Recorded Time 4 ARTHROPLASTY , KNEE, CONDYLE AND PLATEAU (SURG) completed Lula [facility] 05/09/2024 09:14:35 4 ARTHROPLASTY , KNEE, CONDYLE AND PLATEAU (SURG) completed Lula Kidd [place] [facility] 12/07/2023 10:41:04 Knee Surgery completed Rodriguez [facility] 06/17/2023 11:18:38 Imaging Results None recorded. Procedure Notes None recorded. Medical Equipment None Reported. Allergies Allergen ID Allergen Name Allergen Category Reaction Reaction Severity Criticality Documentation Date Start Date Code Code System Note Provider Name and Address Organization Details Recorded Time 49136 atorvasta tin calcium medicatio n Not available Not available Not available 05/14/20252023 64905 RxNorm React ion: Other (See Comme nts), sever ity: Unkno wn;Mu scle cramp ing Not Available [facility] 5 01:25:28 9583 Lipitor medicatio n Not available Not available Not available 06/17/2023 02605 5 RxNorm Rodriguez saldana, [facility] 3 11:16:58 9584 Product containin g 3-hydroxy -3-methyl glutaryl- coenzyme A reductase inhibitor (product) medicatio n Not available Not available Not available 06/17/2023 56397 009 SNOMED Rodriguez saldana, [facility] 3 11:17:04 Medications Name Sig Start Date Stop Date Status Note LastModified by Organization Details LastModified Time metformin 500 mg tablet Take 1 tablet (500 mg total) by mouth 2 (two) times a day with meals. active Not Available Not Available No t Available cyanocobala min (vit B-12) 100 mcg tablet Take 0.5 tablets (50 mcg total) by mouth daily. active Not Available Not Available No t Available tizanidine 4 mg tablet TAKE 1 TABLET BY MOUTH EVERY 6 HOURS NEEDED 06/19 completed Not Available Not Available Not Available meloxicam 15 mg tablet TAKE 1 TABLET BY MOUTH EVERY DAY FOR 15 DAYS 08/21 completed Not Available Not Available Not Available lisinopril 20 mg tablet TAKE 1 TABLET DAILY active Not Available Not Available No t Available aspirin 81 mg tablet,danyel yed release TAKE 1 TABLET BY MOUTH TWICE A DAY FOR 28 DAYS active Not Available Not Available No t Available simvastatin 40 mg tablet TAKE 1 TABLET DAILY active Not Available Not Available No t Available ondansetron 8 mg disintegrat ing tablet Take 1 tablet dissolved under the tongue every 8 hours as needed for nausea. 08/21 completed Not Available Not Available Not Available cefadroxil 500 mg capsule TAKE 1 CAPSULE BY MOUTH TWICE A DAY FOR 7 DAYS 06/19 completed Not Available Not Available Not Available methocarbam ol 750 mg tablet Take 1 tablet every 6 hours by oral route as needed. 06/19 completed Not Available Not Available Not Available pantoprazol e 40 mg tablet,danyel yed release TAKE 1 TABLET BY MOUTH EVERY DAY NEEDED 06/19 completed Not Available Not Available Not Available aspirin 81 mg chewable tablet Chew 1 tablet (81 mg total) by mouth daily. active Not Available Not Available No t Available Tylenol Extra Strength 500 mg tablet Take 2 tablets every 8 hours by oral route for 28 days. 06/19 completed Not Available Not Available Not Available oxycodone 5 mg tablet TAKE 1-2 TABLETS BY MOUTH EVERY 4 HOURS NEEDED FOR PAIN 08/21 completed Not Available Not Available Not Available cyclobenzap rine 5 mg tablet TAKE 1 TABLET BY MOUTH 3 TIMES A DAY NEEDED. 06/19 completed Not Available Not Available Not Available Asprin Ec Low Dose active Not Available Not Available Not Available Senexon-S 8.6 mg-50 mg tablet TAKE 1 TABLET BY MOUTH TWICE A DAY 06/19 completed Not Available Not Available Not Available tranexamic acid 650 mg tablet TAKE 3 TABLETS IN THE MORNING FOR 3 DAYS START ON THE FIRST DAY AFTER YOUR SURGERY. 06/19 completed Not Available Not Available Not Available Osteo Bi-Flex active Not Available Not Available Not Available Multi Vitamin active Not Available Not Available Not Available Vitals Date Recorded Body height Body mass index (BMI) Body weight Provider Name and Address Organization Details Last Updated DateTime 03/29/2025 170.18 cm 25.6 kg/m2 [address].[address] [place] [facility] 03/29/2025 10:52:23 Date Recorded Body height Respiratory rate Heart rate Body mass index (BMI) Body weight Body temperature Oxygen saturation Oxygen saturation in Arterial blood by Pulse oximetry Systolic And Diastolic Provider Name and Address Organization Details Last Updated DateTime 4 171 cm 18 /min 77 /min 24.66 kg/m2 25616 g 97.196 [degF] 100 % 100 % 114/72 mm[Hg] Not Available [facility] 5 00:51:05 Date Recorded Body height Provider Name an d Address Organization Details Last Updated DateTime 05/22/2024 170.[address] [place] [facility] 05/22/2024 09:34:37 Date Recorded Body height Provider Name an d Address Organization Details Last Updated DateTime 06/19/2024 170.[address] [facility] 06/19/2024 14:35:19 Social History None recorded. Functional Status Question Answer Note LastModified by Organizat ion Details LastModified Time Do you use any illicit or recreational drugs? No [email or web address] Information not available 06/17/2023 Do you or have you ever used any other forms of tobacco or nicotine? No [email or web address] Information not available 06/17/2023 What is your level of alcohol consumption? None [email or web address] Information not available 06/17/2023 Mental Status None recorded. Family History Relationship Description Onset Age of this Age Resolved Age Notes LastModified by Organization Details LastModified Time Mother Family history of malignant neoplasm [email or web address] Not available 11:18:23 Father Diabetes mellitus [email or web address] Not available 11:18:30 Medical History Condition Response Diabetes Y Hypertension Y Past Encounters Encounter ID Performer Location Encounter Start Date Encounter Closed Date Diagnosis/Indication Diagnosis SNOMED-CT Code Diagnosis ICD10 Code Diagnosis IMO Codes Diagnosis Note [id number] MD KANG Gage [address] [address] 06/17/2023 10:47:03 06/17/2023 12:00:30 Pain of right knee joint 6025902757 85401 M25.561 Pain of le ft knee joint 3940858775 29174 M25.562 Osteoarthr itis of left knee joint 1413023885 56983 M17.12 Arthritis of knee 473248 002 M13.869 [id number] [address] 12/01/2023 12:42:17 12/01/2023 13:39:43 Osteoarthritis of left knee joint 1258689469 68889 M17.12 [id number] [address] 12/20/2023 10:03:42 12/20/2023 10:25:21 History of operative procedure on knee 304759772 Z96.652 Additional diagnosis detail: History of unicondyla r arthroplas ty of left knee [id number] MD FRANCE Gage[address] [address] 01/31/2024 13:00:09 01/31/2024 13:36:49 History of operative procedure on knee 542548895 Z96.652 Pain of ri ght knee joint 3610379558 81790 M25.561 Additional diagnosis detail: Pain, joint, knee, right Osteoarthr itis of right knee joint 9887982985 60755 M17.11 Additional diagnosis detail: Primary osteoarthr itis of right knee Arthritis of knee 707267 002 M13.869 [id number] MD KANG Zuñiga [address] [address] 02/20/2024 09:23:19 02/20/2024 10:00:07 Pain of left shoulder region 8820013268 M25.512 Additional diagnosis detail: Left shoulder pain, unspecifie d chronicity [id number] [address] 04/26/2024 11:13:47 04/26/2024 15:07:14 Arthritis of knee 217234184 M13.869 [id number] AILIN SAUCEDO [place] [address] 05/22/2024 09:30:10 05/22/2024 09:46:42 History of prosthetic unicompartmental arthroplasty of right knee 8585256258 022802 Z96.651 [id number] MD KANG Gage [address] [address] 06/19/2024 14:20:13 06/19/2024 14:59:53 History of prosthetic unicompartmental arthroplasty of right knee 0055863826 293345 Z96.651 [id number] [place] [id number] 08/21/2024 14:02:56 08/21/2024 14:29:03 History of prosthetic unicompartmental arthroplasty of right knee 3574129985 663129 Z96.651 [id number] [place] [id number] 9 03/29/2025 10:38:42 03/29/2025 11:38:30 Pain of left knee region 6658312741 50588 M25.562 [id number] History of right total knee replacement 6721346324 253404 Z96.651 [id number] Additional diagnosis detail: History of unicondyla r arthroplas ty of left knee History of prosthetic unicompartmental arthroplasty of right knee 3150818275 993351 Z96.651 [id number] Health Concerns Section Related Observation LastModified by Organization Detai ls LastModified Time None Recorded Concern Status LastModified by Organization Details LastModified Time None Recorded Advance Directives Directive None Recorded Payers Insurance Date Sequence Insurance Name Policy Number Policy Tsang Covered Member ID Tsang Member ID Guarantor Name 03/29/2025 1 [place] (MEDICARE [place]ACEMENT PPO) [id number] Orlando Lockwood [id number] Lock[place] 04/01/2025 1 [place] - [place]) [id number] Orlando Lockwood [id number] Orlando Lockwood
--- OUTSIDE RECORDS SUMMARY | 2025-06-12 13:33 | XMS_ITS | Encounter Summary ---
Author Organization [facility] Address [address] [place] [address] Phone Care Team Providers Care Electrophonic Engineer Name Role Phone Pcp, Unknown Primary Care Provider Unavailabl e Reason for Visit * Reason Onset Date Comments same day cancel 05/09/2025 Encounter Details Date Type Department Care Team ([facility] st Contact Info) Description 05/09/2025 Telephone [facility] [address], [place] [phone] Pcp, Unknown same day cancel Social History [...] can cancel appointments anytime through your Patient [facility]. We appreciate your understanding. Required Scripting for [...] can cancel appointments anytime through your Patient [facility]. documented in this encounter Plan of Treatment Not on file documented as of this encounter Visit Diagnoses Not on filedocumented in this encounter Care Teams Electrophonic Engineer Relationship Specialty Start Date End Date Pcp, Unknown PCP - General 09/18/24 documented as of this encounter Additional Source Comments The information contained in this document represents components of the legal health record. It is not the complete legal health record.[facility]
--- OUTSIDE RECORDS SUMMARY | 2025-06-12 13:33 | XMS_ITS | Clinical Summary ---
Author Organization [facility] Address [address] [place] [address] Care Team Providers Care Debrander Name Role Phone Tray Hickman MD Primary Care Provider [phone] Allergies Active Allergy Reactions Criticality Noted Date [...] age to complete this topic Care Teams Debrander Relationship Specialty Start Date End Date Tray Hickman MD [address] [place] [address] PCP - General Internal Medicine 07/14/16
--- OUTSIDE RECORDS SUMMARY | 2025-06-12 13:33 | XMS_ITS | Clinical Summary ---
Author Organization [facility] Address [address] [place] [phone] Phone Care Team Providers Care Security Representative Name Role Phone Pcp, Unknown Primary Care Provider Unavailabl e Encounters Date Type Department Care Team Description 05/09/2025 Telephone [facility] [address] [place] [address] Pcp, Unknown same day cancel from Last [...] VACCINE (#1) 2025 COVID-19 VACCINE ( - 2024-2 6 season) 2025 RSV VACCINE (1 - 1-dose [...] MEDICARE PART A & B Care Teams Security Representative Relationship Specialty Start Date End Date Pcp, Unknown PCP - General 09/18/24 Additional Source Comments The information contained in this document represents components of the legal health record. It is not the complete legal health record.[facility]
== END 2025-06-12 11:05 | disposition home or self-care (01) ==
LOC: HO.HMCSH 10:37
PROVIDERS: PCP Internal Medicine; Visit Provider Physician Assistant Medical
DX: Z48.02 Encounter for removal of sutures (principal); R20.2 Paresthesia of skin; Z51.89 Encounter for other specified aftercare; Z23 Encounter for immunization

== ENCOUNTER → 2025-06-12 10:37 | Outpatient (BNVA) | payer MEDICARE, SELFPAY | PROVIDERS: PCP Internal Medicine; Visit Provider Physician Assistant Medical | DX: S01.91XD Laceration without foreign body of unspecified part of head, subsequent encounter (principal); R20.2 Paresthesia of skin; W01.0XXD Fall on same level from slipping, tripping and stumbling without subsequent striking against object, subsequent encounter; Z28.21 Immunization not carried out because of patient refusal; Z48.02 Encounter for removal of sutures | CPT/HCPCS: 90471; 96127; 99212 ==

== ENCOUNTER 2025-07-01 14:02 | Outpatient (AMB) | payer MEDICARE, SELFPAY ==
[2025-07-01 14:08] VITALS: BP 131/65; PULSE 92; RESP 14; TEMP 36.7; O2SAT 98; BMI 25.6
--- NOTE | 2025-07-01 14:08 | MHC.PC.OV ---
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 The bhavna were placed for a scalp laceration sustained after he tripped and fell over a wall while standing and bending to pick something up. He had over 30 bhavna placed initially, and two were missed during a prior removal. The patient has a history of colon polyps found on a previous colonoscopy, which he states were benign. He is due for colorectal cancer screening and was inquiring about a referral for a colonoscopy. [facility] Medical History (Updated 07/01/25 @ 14:37 by Hermelinda Celis PA-C) Colon cancer screening Removal of bhavna Visit for wound check Paresthesias Preventative health care Vitamin B12 deficiency Hyperlipidemia Type 2 diabetes mellitus with hemoglobin A1c goal of less than 7.0% Hypertension Family History Mother No problems noted. Father No problems noted. Social History Housing: House Alcohol intake: current Patient Tobacco Use Status: Current someday Tobacco user Tobacco use type: Cigar service: No Current occupational status: retired Cognitive needs: No Hearing needs: No Vision needs: Yes (rx glasses) Questionnaire PHQ-9 Over the last 2 weeks, how often have you been bothered by any of the following problems? 1. Little interest or pleasure in doing things: not at all 2. Feeling down, depressed, or hopeless: not at all 3. Trouble falling or staying asleep, or sleeping too much: not at all 4. Feeling tired or having little energy: not at all 5. Poor appetite or overeating: not at all 6. Feeling bad about yourself - or that you are a failure or have let yourself or your family down: not at all 7. Trouble concentrating on things, such as reading the newspaper or watching television: not at all 8. Moving or speaking so slowly that other people could have noticed. Or the opposite - being so fidgety or restless that you have been moving around a lot more than usual: not at all 9. Thoughts that you would be better off or of hurting yourself in some way: not at all Total score: 0 Depression Screening Interpretation: Negative Depression Screening Done: Yes 71109 - PHQ-9 Billing: Yes Source: Developed by Drs. Collin Eng, Vida Bear, Addison Wilkinson and colleagues, with an educational keith from [employer]. Thrive Questionnaire Date Thrive assessed: 06/12/25 I am a: Patient What is your living situation today?: I have a steady place to live Within the past 12 months, did the food you bought not last and you didn't have the money to get more?: Never true Within the past 12 months, did you worry whether your food would run out before you got money to buy more?: Never true Do you have trouble paying for medicines?: No Do you have trouble getting transportation to medical appointments?: No Do you have trouble paying your heating and electricity bill?: No Do you have trouble taking care of your child, family member or friend?: No Do you have trouble with day-to-day activities such as bathing, preparing meals, shopping, managing finances, etc.?: No Are you currently unemployed and looking for a job?: No Are you interested in more education?: No Please select the resources that you would like help with: None THRIVE Score: 0 AUDIT C Alcohol Use Questionnaire (AUDIT-C) 1. How often do you have a drink containing alcohol?: 2-3 times a week 2. How many drinks containing alcohol do you have on a typical day when you are drinking?: 1 or 2 3. How often do you have six or more drinks on one occasion?: Never Total Score: 3 Score Reviewed/Action Taken: No CARLOTA-7 AMB Questionnaire CARLOTA-7 Date CARLOTA - 7 assessed: 06/12/25 Feeling nervous, anxious, or on edge: 0 = Not at all Not being able to stop or control worryin = Not at all Worrying too much about different things: 0 = Not at all Trouble relaxin = Not at all Being so restless that it is hard to sit still: 0 = Not at all Becoming easily annoyed or irritable: 0 = Not at all Feeling afraid as if something awful might happen: 0 = Not at all Total CARLOTA-7 score (0-4 normal; 5-9 mild; 10-14 moderate; 15-21 severe): 0 Source: Developed by Drs. Collin Eng, Vida Bear, Addison Wilkinson and colleagues, with an educational keith from Take[employer]. CARLOTA-7 Assessment Billing CARLOTA-7 Assessment Tool: CARLOTA-7 Assessment 81293 Review of Systems Const Details: - Integumentary: Reports desquamation from the scalp wound. - Gastrointestinal: Denies any current stomach issues. All systems reviewed & are unremarkable except as noted in HPI and below Physical exam (Primary Care) Vital Signs: Last Vital Signs Temp 98.0 F 07/01/25 14:08 Pulse 92 07/01/25 14:08 Resp 14 07/01/25 14:08 BP 131/65 07/01/25 14:08 Pulse Ox 98 07/01/25 14:08 Oxygen Delivery Method Room Air 07/01/25 14:08 Care Plan Goal for BP management: <140/90 at Goal BMI result Body Mass Index 25.6 BMI Assessment/Plan discussion: High BMI High, discussed plan: lifestyle, weight reduction, dietary, physical activity, alcohol moderation and other Tobacco/Smoking Status: Tobacco use Status Tobacco use date assessed 06/12/25 07/01/25 14:10 Patient Tobacco Use Status Current someday Tobacco 07/01/25 14:10 Tobacco use type Cigar 07/01/25 14:10 PHQ-9: PHQ-9 Score PHQ-9: Total score 0 07/01/25 14:17 Depression Screening Interpretation: Negative Thrive Assessment: Date of Thrive Assessment Date Thrive assessed 06/12/25 07/01/25 14:10 Const Other: Appearance: Alert. Oriented X3. No acute distress. Head: Normal external exam. Normocephalic. Atraumatic. Noted presence of a scar with hair growing through it with [address] No surrounding erythema, streaking, induration, fluctuance or signs of active infection at this time or purulent drainage or foul odor noted. Eyes: Pupils are equal, round, and reactive to light. Extraocular movements intact. Conjunctiva and sclera normal. Eyelids normal. Throat: Pharynx normal. Uvula midline. Moist mucous membranes. Neck: Normal inspection. Neck supple. Full range of motion. Cardiovascular: Normal heart rate and rhythm. Respiratory: No respiratory distress. Painless inspiration. Back: Full range of motion noted. Skin: Skin warm and dry. Normal skin color. Extremities: Extremities exhibit normal range of motion. Results Reviewed Results Reviewed: Two bhavna removed from scalp. Patient tolerated procedure well. No complications. No signs of active infection. Coding Level of Care Code Est Pt Level 4 (02208) Complex EM visit Add On G2211 Diagnoses Removal of bhavna Z48.02 Colon cancer screening Z12.11 Additional Codes CARLOTA-7 Assessment Billing - CARLOTA-7 Assessment Tool: CARLOTA-7 Assessment 90508 ([id number]) PHQ-9 - 78877 - PHQ-9 Billing: Yes ([id number]) Assessment & Plan Assessment & Plan (1) Removal of bhavna: Code(s): Z48.02 - Encounter for removal of sutures Category: Medical Plan: The patient presented for removal of two missed surgical bhavna from a prior scalp laceration. The wound is healing well. The remaining two bhavna were removed without complication in the office. (2) Colon cancer screening: Code(s): Z12.11 - Encounter for screening for malignant neoplasm of colon Category: Medical Plan: The patient is due for colon cancer screening and has a history of benign polyps. A Cologuard test will be ordered. The patient was counseled that a positive result, which is possible given his history of polyps, does not necessarily indicate cancer but would require a follow-up colonoscopy. Plan Plan Patient was informed and verbally consented to the use of an ambient scribe for clinic note documentation during this visit. 1. Follow-Up For Scalp Laceration The patient presented for removal of two missed surgical bhavna from a prior scalp laceration. The wound is healing well. The remaining two bhavna were removed without complication in the office. 2. Screening For Malignant Neoplasm Of Colon The patient is due for colon cancer screening and has a history of benign polyps. A Cologuard test will be ordered. The patient was counseled that a positive result, which is possible given his history of polyps, does not necessarily indicate cancer but would require a follow-up colonoscopy. I confirmed with the patient the presence of two retained surgical bhavna on his scalp, which were missed during a prior removal. The bhavna were removed in the office without any issues. We discussed his need for colon cancer screening. Given his history of polyps, I explained the Cologuard test as an initial screening option. I informed him that a positive result is possible due to his polyp history and would necessitate a diagnostic colonoscopy, clarifying that a positive test indicates the likely presence of a polyp, not necessarily cancer. The patient understood and agreed to proceed with the Cologuard test. Orders: Referrals Cologuard Test Z12.11 - Encounter for screening for malignant neoplasm of colon, Z12.12 - Encounter for screening for malignant neoplasm of rectum Patient Instructions: - The two remaining bhavna on your scalp have been removed. - We are ordering a Cologuard test for your colon cancer screening. - A collection kit will be mailed to your home; please follow the instructions to collect a stool sample and send it back. - If the test result is positive, it means you may have a polyp and will need a colonoscopy for a closer look. - A positive test does not mean you have cancer. - You have a follow-up appointment already scheduled.
--- OUTSIDE RECORDS SUMMARY | 2025-07-01 16:20 | XMS_ITS | Data Portability ---
Author Organization [place] [facility] [place] Address [address] [place] [address] Care Team Providers Care Deodorizer Operator Name Role Phone HOLLEY MOROCHO Referring Provider [...] scheduled for right uni knee arthroplasty at [facility]. They have significant joint pain, dysfunction [...] Mckenzie MS, PA-C in indirect conjunction with documenting/shoutri sing provider Mike Pompa MD. He agrees [...] pain relief in the knee and satisfactory latter day of function in terms of activities of [...] after knee arthroplasty. Continue knee conditioning exercises. Klgu-xnl-drxzelo medications as needed. The patient understands that [...] pain relief in the knee and satisfactory latter day of function in terms of activities of [...] after knee arthroplasty. Continue knee conditioning exercises. Zkss-fkb-vtldscw medications as needed. The patient understands that [...] indirect conjunction with documenting/supervi sing provider Mike oPmpa MD. He agrees with history, physical examination, [...] 4 or more view 025 03/29/20 25 [email or web address] 8 [facility], [address], [place], [address], 5 11:38:30 XR, knee, 4 or more view 025 03/29/20 25 [email or web address] 8 [facility], [address], [place], [address], 5 11:38:30 XR, knee, 3 view 024 08/21/20 24 [facility], [address], [place], [address], 4 14:29:03 Medication Orders None record ed. Patient TargetsNo targets recorded. Patient Instructions Encounter Date Encounter Id Patient Instructions Last Modified By Organization Details Last Modified Time 05/22/2024 [id number] physical therapy * - Diagnosis: Status post [...] ation record ed. [email or web address] [facility] [address], [place], [address], 04/06/2024 03:26:43 Result Notes None recorded. Problems Name Problem SNOMED Code Status Onset Date Resolution Date Notes Provider Name and Address Organization Details Recorded Time Osteoarth ritis of left knee joint 67372088105 9109 Active 2022 Mike Pompa MD [address], [place], [address] , [place] [facility] 3 12:13:53 Arthritis of knee 234362812 Active 2022 Mike Pompa MD [address], [place], [address] , [place] [facility], [facility] 3 12:14:22 History of hypertens ion 389775338 Active 2023 History of hypertens ion Not Available [facility] 5 23:10:58 History of raised blood lipids 101228503 Active 2023 History of hyperlipi demia Not Available [facility] 5 23:10:58 Type 2 diabetes mellitus without complicat ion 756841979 Active 2023 Type 2 diabetes mellitus without complicat ion, without long-term current use of insulin Not Available [facility] 5 23:10:59 History of operative procedure on knee 763839997 Active 2023 ÁNGEL MCKENZIE PA-C [address], [place], [address] , [place] [facility], [facility] 4 10:26:14 Harmful pattern of use of alcohol 12543375 Active 2023 Alcohol abuse - Overview: Formattin g of this note might be different from the original. 04/26/2024 Sober 30 days Not Available [facility] 5 23:10:59 History of prostheti c unicompar tmental arthropla sty of right knee 70318898537 64028 Active 2023 ÁNGEL MCKENZIE PA-C [address], [place], [address] , [place] [facility] 4 09:39:58 Problem Notes None recorded. Procedures Surgical History Date Name Laterality Status Provider Name and Address Organization Details Recorded Time 4 ARTHROPLASTY , KNEE, CONDYLE AND PLATEAU (SURG) completed Lula [facility] 05/09/2024 09:14:35 4 ARTHROPLASTY , KNEE, CONDYLE AND PLATEAU (SURG) completed Lula Kidd [place] [facility] 12/07/2023 10:41:04 Knee Surgery completed Rodriguez Verduzco [facility], [facility] 06/17/2023 11:18:38 Imaging Results None recorded. Procedure Notes None recorded. Medical Equipment None Reported. Allergies Allergen ID Allergen Name Allergen Category Reaction Reaction Severity Criticality Documentation Date Start Date Code Code System Note Provider Name and Address Organization Details Recorded Time 65467 atorvasta tin calcium medicatio n Not available Not available Not available 05/14/20252023 02605 RxNorm React ion: Other (See Comme nts), sever ity: Unkno wn;Mu scle cramp ing Not Available [facility] 5 01:25:28 9583 Lipitor medicatio n Not available Not available Not available 06/17/2023 93030 5 RxNorm Rodriguez saldana, [facility], P 3 11:16:58 9584 Product containin g 3-hydroxy -3-methyl glutaryl- coenzyme A reductase inhibitor (product) medicatio n Not available Not available Not available 06/17/2023 52472 009 SNOMED Rodriguez saldana, [facility], P 3 11:17:04 Medications Name Sig Start [...] Updated DateTime 03/29/2025 170.18 cm 25.6 kg/m2 [address].[address] [facility] 03/29/2025 10:52:23 Date Recorded Body height Respiratory rate Heart rate Body mass index (BMI) Body weight Body temperature Oxygen saturation Oxygen saturation in Arterial blood by Pulse oximetry Systolic And Diastolic Provider Name and Address Organization Details Last Updated DateTime 4 171 cm 18 /min 77 /min 24.66 kg/m2 19097 g 97.196 [degF] 100 % 100 % 114/72 mm[Hg] Not Available [facility] 5 00:51:05 Date Recorded Body height Provider Name an d Address Organization Details Last Updated DateTime 05/22/2024 170.[address] [place] [facility] 05/22/2024 09:34:37 Date Recorded Body height Provider Name an d Address Organization Details Last Updated DateTime 06/19/2024 170.18 [address] [place] [facility] 06/19/2024 14:35:19 Social History None recorded. Functional Status Question Answer Note LastModified by Organizat ion Details LastModified Time Do you use any illicit or recreational drugs? No [email or web address] Information not available 06/17/2023 Do you or have you ever used any other forms of tobacco or nicotine? No [email or web address] Information not available 06/17/2023 What is your level of alcohol consumption? None [email or web address] Information not available 06/17/2023 Mental Status None recorded. Family History Relationship Description Onset Age of this Age Resolved Age Notes LastModified by Organization Details LastModified Time Mother Family history of malignant neoplasm [email or web address] Not available 11:18:23 Father Diabetes mellitus [email or web address] Not available 11:18:30 Medical History Condition Response Diabetes Y Hypertension Y Past Encounters Encounter ID Performer Location Encounter Start Date Encounter Closed Date Diagnosis/Indication Diagnosis SNOMED-CT Code Diagnosis ICD10 Code Diagnosis IMO Codes Diagnosis Note [id number] MD KANG Gage [address] [address] 06/17/2023 10:47:03 06/17/2023 12:00:30 Pain of right knee joint 2964735627 63184 M25.561 Pain of le ft knee joint 4225013236 92862 M25.562 Osteoarthr itis of left knee joint 8834650268 37416 M17.12 Arthritis of knee 255849 002 M13.869 [id number] [address] 12/01/2023 12:42:17 12/01/2023 13:39:43 Osteoarthritis of left knee joint 1190426338 62098 M17.12 [id number] [address] 12/20/2023 10:03:42 12/20/2023 10:25:21 History of operative procedure on knee 584500786 Z96.652 Additional diagnosis detail: History of unicondyla r arthroplas ty of left knee [id number] MD FRANCE Gage[address] [address] 01/31/2024 13:00:09 01/31/2024 13:36:49 History of operative procedure on knee 428322413 Z96.652 Pain of ri ght knee joint 1387912661 91901 M25.561 Additional diagnosis detail: Pain, joint, knee, right Osteoarthr itis of right knee joint 1435640141 15526 M17.11 Additional diagnosis detail: Primary osteoarthr itis of right knee Arthritis of knee 785645 002 M13.869 [id number] MD KANG Zuñiga [address] [address] 02/20/2024 09:23:19 02/20/2024 10:00:07 Pain of left shoulder region 5231434503 M25.512 Additional diagnosis detail: Left shoulder pain, unspecifie d chronicity [id number] [address] 04/26/2024 11:13:47 04/26/2024 15:07:14 Arthritis of knee 869688424 M13.869 [id number] AILIN SAUCEDO [place] [address] 05/22/2024 09:30:10 05/22/2024 09:46:42 History of prosthetic unicompartmental arthroplasty of right knee 7312773157 406263 Z96.651 [id number] MD KANG Gage [address] [address] 06/19/2024 14:20:13 06/19/2024 14:59:53 History of prosthetic unicompartmental arthroplasty of right knee 7059858503 553538 Z96.651 [id number] [place] [address] 08/21/2024 14:02:56 08/21/2024 14:29:03 History of prosthetic unicompartmental arthroplasty of right knee 6174901769 550710 Z96.651 [id number] [place] [address] 03/29/2025 10:38:42 03/29/2025 11:38:30 Pain of left knee region 8893600054 89671 M25.562 [id number] History of right total knee replacement 7059723452 016472 Z96.651 [id number] Additional diagnosis detail: History of unicondyla r arthroplas ty of left knee History of prosthetic unicompartmental arthroplasty of right knee 6990481905 598759 Z96.651 [id number] Health Concerns Section Related Observation LastModified by Organization Detai ls LastModified Time None Recorded Concern Status LastModified by Organization Details LastModified Time None Recorded Advance Directives Directive None Recorded Payers Insurance Date Sequence Insurance Name Policy Number Policy Tsang Covered Member ID Tsnag Member ID Guarantor Name 03/29/2025 1 [place] (MED[place]ARE [place]EMENT PPO) [id number] Orlando Lockwood [id number] Lock[place] 04/01/2025 1 [place] - [place]) [id number] Orlando Lockwood [id number] [address]
--- OUTSIDE RECORDS SUMMARY | 2025-07-01 16:20 | XMS_ITS | Clinical Summary ---
Author Organization [address] Address [address] [place] [phone] Phone Care Team Providers Care Basic Sciences Dean Name Role Phone Tray Hickman MD Primary Care Provider [phone] Surgical History Surgery Date Site/Laterality Comments KNEE ARTHROSCOPY W/ MENISCECTOMY Bilateral PROCEDURE:KNEE ARTHROSCOPY W/ MENISCECTOMY;COMMENT:several years ago COLONOSCOPY PROCEDURE:COLONOSCOPY PARTIAL KNEE ARTHROPLASTY 11/2023 Left Medial PROCEDURE:PARTIAL KNEE ARTHROPLASTY Medical History Medical History Date Comments Hypertension DX:Hypertension Diabetes mellitus (CMS/HCC V 24, CMS/HCC V28) DX:Diabetes mellitus ([facility]) High cholesterol DX:High cholest caro Alcohol abuse [...] unspecified Type 2 diabetes mellitus without complications ([facility]/HCC) Essential (primary) hypertension from Last 3 Months or Most Recently Relevant to Health Maintenance Results * Creatinine (09/10/2024 12:00 AM EST) Creatinine 0.82 0.70 - 1.30 mg/dL LAB CHEMISTRY METHOD 09/10/2024 7:05 PM EST [facility] eGFR 93 >=60 mL/min/1. 73m2 LAB CHEMISTRY METHOD 09/10/2024 7:05 PM EST [facility] Comment:Calculation based on the Chronic Kidney Disease Epidemiology Collaboration (CKD-EPI) equation refit without adjustment for race. Blood Venous blood specimen / Unknown 09/10/2024 09/10/2024 6:15 PM EST us Saturnino SHAH LAB BLOOD ORDERABLES Final Res ult [facility] [address] [place] [address], [place] [phone] * LDL cholesterol, direct (09/10/2024 12:00 AM EST) LDL Direct 84 <=100 mg/dL LAB CHEMISTRY METHOD 09/10/2024 7:05 PM EST [facility] Blood Venous blood specimen / Unknown 09/10/2024 09/10/2024 6:15 PM EST Saturnino SHAH LAB BLOOD ORDERABLES Final Res ult [facility] [address] [place] [address], [place] [phone] * (ABNORMAL) Hemoglobin A1c (09/10/2024 12:00 AM EST) Hemoglobin A1C 6.5(H) <6.5 % LAB CHEMISTRY METHOD 09/10/2024 9:47 PM EST [facility] Mean Bld Glu Estim. 140 mg/dL LAB CHEMISTRY METHOD 09/10/2024 9:47 PM EST [facility] Blood Venous blood specimen / Unknown 09/10/2024 09/10/2024 6:15 PM EST Saturnino SHAH LAB BLOOD ORDERABLES Final Res ult Performing Organization Address City/[facility]/ZIP Co de Phone Number [facility] [address] [place] [address], [place] [phone] from Last 3 Months or Most Recently Relevant to Health Maintenance Insurance [facility] [place] [phone] [employer] - [place] MEDICARE ADVANTAGE Care Teams Basic Sciences Dean Relationship Specialty Start Date End Date Tray Hickman MD [address] [address] PCP - General 07/14/16
--- OUTSIDE RECORDS SUMMARY | 2025-07-01 16:20 | XMS_ITS | Clinical Summary ---
Author Organization [facility] Address [address] [place] [phone] Phone Care Team Providers Care Industrial Ecologist Name Role Phone Pcp, Unknown Primary Care Provider Unavailabl e Encounters Date Type Department Care Team Description 05/09/2025 Telephone [employer] [facility] [address] [place] [address] Pcp, Unknown same day cancel from Last [...] MEDICARE PART A & B Care Teams Industrial Ecologist Relationship Specialty Start Date End Date Pcp, Unknown PCP - General 09/18/24 Additional Source Comments The information contained in this document represents components of the legal health record. It is not the complete legal health record.[facility]
--- OUTSIDE RECORDS SUMMARY | 2025-07-01 16:20 | XMS_ITS | Encounter Summary ---
Author Organization [facility] Address [address] [place] [phone] Phone Care Team Providers Care Goat Driver Name Role Phone Pcp, Unknown Primary Care Provider Unavailabl e Reason for Visit * Reason Onset Date Comments same day cancel 05/09/2025 Encounter Details Date Type Department Care Team ([facility] st Contact Info) Description 05/09/2025 Telephone Thismoment [facility] [address] [place], [place] [phone] Pcp, Unknown same day cancel Social History [...] can cancel appointments anytime through your [facility] [place]. We appreciate your understanding. Required Scripting for [...] can cancel appointments anytime through your [place]. documented in this encounter Plan of Treatment Not on file documented as of this encounter Visit Diagnoses Not on filedocumented in this encounter Care Teams Goat Driver Relationship Specialty Start Date End Date Pcp, Unknown PCP - General 09/18/24 documented as of this encounter Additional Source Comments The information contained in this document represents components of the legal health record. It is not the complete legal health record.[facility]
--- OUTSIDE RECORDS SUMMARY | 2025-07-01 16:20 | XMS_ITS | Encounter Summary ---
Author Organization [facility] Address [address] [place] [address] Care Team Providers Care Manager Rail Name Role Phone Tray Hickman MD Primary Care Provider Encounter Details Date Type Department Care Team (Latest Contact Info) Description 09/10/2024 Lab Requisition [facility] [address] [facility] [place] [address] Saturnino Howell PA [address] [facility] [address] [place] [address] Hyperlipidemia, unspecified; Type 2 diabetes mellitus without [...] Hold for add-ons. 09/10/2024 8:01 PM EST [facility] Comment:Auto resulted. Blood Venous blood specimen / Unknown 09/10/2024 09/10/2024 6:36 PM EST us Saturnino SHAH LAB BLOOD ORDERABLES Final Res ult [facility] [address] [place] [address], [place] [phone] * (ABNORMAL) Hemoglobin A1c (09/10/2024 12:00 AM EST) Hemoglobin A1C 6.5(H) <6.5 % LAB CHEMISTRY METHOD 09/10/2024 9:47 PM EST [facility] Mean Bld Glu Estim. 140 mg/dL LAB CHEMISTRY METHOD 09/10/2024 9:47 PM EST [facility] Blood Venous blood specimen / Unknown 09/10/2024 09/10/2024 6:15 PM EST us Saturnino SHAH LAB BLOOD ORDERABLES Final Res ult Performing Organization Address [facility]/ZIP Co de Phone Number [facility] [address] [place] [address], * Creatinine (09/10/2024 12:00 AM EST) Creatinine 0.82 0.70 - 1.30 mg/dL LAB CHEMISTRY METHOD 09/10/2024 7:05 PM [facility] eGFR 93 >=60 mL/min/1. 73m2 LAB CHEMISTRY METHOD 09/10/2024 7:05 PM EST [facility] Comment:Calculation based on the Chronic Kidney Disease Epidemiology Collaboration (CKD-EPI) equation refit without adjustment for race. Blood Venous blood specimen / Unknown 09/10/2024 09/10/2024 6:15 PM EST us Saturnino SHAH LAB BLOOD ORDERABLES Final Res ult Performing Organization Address [facility] de Phone Number [facility] [address] [place] [address], * BUN (09/10/2024 12:00 AM EST) BUN 10 5 - 25 mg/dL LAB CHEMISTRY METHOD 09/10/2024 7:05 PM EST [facility] Blood Venous blood specimen / Unknown 09/10/2024 09/10/2024 6:15 PM EST us Saturnino SHAH LAB BLOOD ORDERABLES Final Res ult [facility] [address] [place] [address], [place] [phone] * LDL cholesterol, direct (09/10/2024 12:00 AM EST) Pathologist [facility] LDL Direct 84 <=100 mg/dL LAB CHEMISTRY METHOD 09/10/2024 7:05 PM [facility] Blood Venous blood specimen / Unknown 09/10/2024 09/10/2024 6:15 PM EST Saturnino SHAH LAB BLOOD ORDERABLES Final Res ult [facility] [address] [place] [address], [place] [phone] * Hepatic function panel (09/10/2024 12:00 AM EST) Pathologist [facility] Total Protein 6.5 6.0 - 8.0 g/dL LAB CHEMISTRY METHOD 09/10/2024 7:05 PM [facility] Albumin 4.1 3.2 - 5.0 g/dL LAB CHEMISTRY METHOD 09/10/2024 7:05 PM [facility] Total Bilirubin 1.0 0.0 - 1.4 mg/dL LAB CHEMISTRY METHOD 09/10/2024 7:05 PM [facility] Bilirubin, Direct 0.2 0.0 - 0.3 mg/dL LAB CHEMISTRY METHOD 09/10/2024 7:05 PM [facility] Bilirubin, Indirect 0.8 0.0 - 1.1 mg/dL LAB CHEMISTRY METHOD 09/10/2024 7:05 PM [facility] ALT (SGPT) 20 10 - 60 unit/L LAB CHEMISTRY METHOD 09/10/2024 7:05 PM [facility] AST (SGOT) 12 10 - 42 unit/L LAB CHEMISTRY METHOD 09/10/2024 7:05 PM [facility] Alkaline Phosphatase 72 42 - 121 unit/L LAB CHEMISTRY METHOD 09/10/2024 7:05 PM EST [facility] Blood Venous blood specimen / Unknown 09/10/2024 09/10/2024 6:15 PM EST us Saturnino SHAH LAB BLOOD ORDERABLES Final Res ult [facility] [address] [place] [address], [place] [phone] * Lipid panel with reflex to direct LDL (09/10/2024 12:00 AM EST) Cholesterol 166 0 - 200 mg/dL LAB CHEMISTRY METHOD 09/10/2024 7:05 PM [facility] Triglycerides 129 0 - 150 mg/dL LAB CHEMISTRY METHOD 09/10/2024 7:05 PM [facility] HDL 59 >=40 mg/dL LAB CHEMISTRY METHOD 09/10/2024 7:05 PM [facility] LDL Calculated 81 0 - 100 mg/dL LAB CHEMISTRY METHOD 09/10/2024 7:05 PM [facility] VLDL Cholesterol Eleazar 25.8 mg/dL LAB CHEMISTRY METHOD 09/10/2024 7:05 PM [facility] Non HDL Chol. (LDL+VLDL) 107 <145 mg/dL LAB CHEMISTRY METHOD 09/10/2024 7:05 PM [facility] Chol/HDL Ratio 2.8 0.0 - 4.4 LAB CHEMISTRY METHOD 09/10/2024 7:05 PM [facility] Blood Venous blood specimen / Unknown 09/10/2024 09/10/2024 6:15 PM EST us Saturnino SHAH LAB BLOOD ORDERABLES Final Res ult [facility] [address] [place] [address], [place] [phone] * (ABNORMAL) Electrolyte panel (09/10/2024 12:00 AM EST) Sodium 132(L) 133 - 145 mmol/L LAB CHEMISTRY METHOD 09/10/2024 7:05 PM EST [facility] Potassium 3.9 3.5 - 5.5 mmol/L LAB CHEMISTRY METHOD 09/10/2024 7:05 PM EST [facility] Chloride 100 96 - 110 mmol/L LAB CHEMISTRY METHOD 09/10/2024 7:05 PM [facility] CO2 27 21 - 32 mmol/L LAB CHEMISTRY METHOD 09/10/2024 7:05 PM [facility] Anion Gap 5 3 - 11 LAB CHEMISTRY METHOD 09/10/2024 7:05 PM [facility] Blood Venous blood specimen / Unknown 09/10/2024 09/10/2024 6:15 PM EST Saturnino SHAH LAB BLOOD ORDERABLES Final Res ult [facility] [address] [place] [address], [place] [phone] documented in this encounter Visit Diagnoses Diagnosis Hyperlipidemia, unspecified Type 2 diabetes mellitus without complications (CMS/HCC V24, CMS/HCC V28) Essential (primary) hypertension Unspecified essential hypertension documented in this encounter Care Teams Manager Rail Relationship Specialty Start Date End Date Tray Hickman MD [address] [address] PCP - General 07/14/16 documented as of this encounter
== END 2025-07-01 15:01 | disposition home or self-care (01) ==
LOC: HO.HMCSH 14:02
PROVIDERS: PCP Physician Assistant Medical; Visit Provider Physician Assistant Medical
DX: Z48.02 Encounter for removal of sutures (principal); Z12.11 Encounter for screening for malignant neoplasm of colon

== ENCOUNTER → 2025-07-01 14:02 | Outpatient (BNVA) | payer MEDICARE, SELFPAY | PROVIDERS: PCP Physician Assistant Medical; Visit Provider Physician Assistant Medical | DX: Z12.11 Encounter for screening for malignant neoplasm of colon (principal); Z48.02 Encounter for removal of sutures | CPT/HCPCS: 96127; 99212 ==